=== PATIENT | male | born 1995 | race African-American/Black ===

== ENCOUNTER 2016-10-31 07:25 | Inpatient (IN) | payer BC, OTHER ==
[~2016-10-31] VITALS: Ht 177.8 cm; Wt 93.0 kg
[2016-10-31] MEDS ORDERED: MAGNESIUM HYDROXIDE 30 ML LIQUID UDC PO PRN (15:15)
[2016-10-31] MEDS ORDERED: BUPRENORPHINE HCL 2 MG TAB.SUBL SL PRN (15:15)
[2016-10-31] MEDS ORDERED: ONDANSETRON ODT 4 MG TAB.RAPDIS SL PRN (15:15)
[2016-10-31] MEDS ORDERED: IBUPROFEN 600 MG TABLET PO PRN (15:15)
[2016-10-31] MEDS ORDERED: diphenhydrAMINE 50 MG CAPSULE PO PRN (15:15)
[2016-10-31] MEDS ORDERED: LOPERAMIDE HCL 2 MG CAPSULE PO PRN ×2 (15:15)
[2016-10-31] MEDS ORDERED: MAG HYDROX/AL HYDROX/SIMETH 30 ML LIQUID UDC PO PRN (15:15)
[2016-10-31] MEDS ORDERED: MIRALAX 17 GM POWD.PACK PO PRN (15:15)
[2016-10-31] MEDS ORDERED: ACETAMINOPHEN 325 MG TABLET PO PRN (15:15)
[2016-10-31] MEDS ORDERED: CLONIDINE HCL 0.1 MG TABLET PO PRN (15:15)
[2016-10-31] MEDS ORDERED: DICYCLOMINE HCL 20 MG TABLET PO PRN (15:15)
[2016-10-31] MEDS ORDERED: HYDROXYZINE PAMOATE 25 MG CAPSULE PO PRN (15:15)
[2016-10-31] MEDS ORDERED: ONDANSETRON 4 MG/2 ML VIAL IM PRN (15:15)
[2016-10-31 15:25] VITALS: BP 129/72
--- NOTE | 2016-10-31 15:25 | NUR ---
PRE-ASSESSMENT: Pre-Assessment done at intake office, client is A/O x4, he presents with flat affect, anxious mood. Goose bumps and dilated pupils noted. T 98, RR 18, BP 129/72, HR 74, spO2 @ 99% on RA, Pain generalized body aches 3/10. He is fully ambulatory. He denies any allergies; he denies any withdrawal-induced seizure. PMH: insomnia, peptic ulcer. Medications taken at home Seroquel 200mg HS PO Gabapentin 300mg BID PO. Substance history Heroin 1gm IV daily for the past 10 days, longest period of sobriety 4 months.
--- NOTE | 2016-10-31 15:30 | NUR ---
Admissions Note 20 year old male admitted to [facility] for withdrawal from heroin. Client reports PMH of Insomnia, Peptic Ulcer, Chronic tobacco use. Client is oriented to unit, educated about protocols and how to work TV and call light in his room. Weight: 205 pounds. Height: 5'10" COWS: 7 Client appears anxious, goose bumps and clammy skin, skin intact with well healed small track liriano on bilateral forearms. Bilateral lung clear on auscultation, abdomen soft, non-tender, no edema noted. Clients voice is soft, he avoids eye contact. Client has NKA. Regular diet ordered. Full code status ordered. Client denies any history of seizures. LBM was 10/31/16, small/brown/soft. Client denies a PCP. He refuses PNA vaccine at this time, stating he is afraid he might get sick because of it. He gives verbal consent for HIV. Client states that he lives with his parents. Client substance use is as follow, he first started using heroin at age 15, for the last 10 days he has been using 1gram via IV daily, last time used 10/30/16 @ 2300. He reports prior treatments here at [facility], last been Jun 2016 from 6th to the 9th. His longest period of sobriety is for the last four months he was at a treatment in [place] and after completing it, he was at a sober living. Dr Nicole is with client. Urine was collected upon admission. All safety measures instituted. Porter precaution. Call light within reach. Will continue to monitor.
[2016-10-31] MEDS ORDERED: GABA-534 PO (15:57)
[2016-10-31] MEDS ORDERED: QUET200T PO (15:57)
[2016-10-31 16:45] LABS: BASOPHILS % (AUTO) 0.7 % (0.0-2.0); EOSINOPHILS % (AUTO) 0.6 % (0.0-7.0); HEMATOCRIT 43.6 % (36.7-47.1); HEMOGLOBIN 15.7 g/dL (12.5-16.3); LYMPHOCYTES % (AUTO) 34.6 % (20.5-74.5); MEAN CORPUSCULAR HEMOGLOBIN 29.4 uug (23.8-33.4); MEAN CORPUSCULAR HGB CONC 36 g/dL (32.5-36.3); MEAN CORPUSCULAR VOLUME 81.4 fL (73.0-96.2); MONOCYTES # (AUTO) 0.6 K/uL (2.0-10.0); MONOCYTES % (AUTO) 9.8 % (0-11); NEUTROPHILS # (AUTO) 3.3 K/uL (1.8-8.9); NEUTROPHILS % (AUTO) 54.3 % (31.5-64.5); PLATELET COUNT (AUTO) 343 K/uL (152-348); RED BLOOD CELL COUNT(AUTO) 5.36 MIL/uL (4.06-5.63); RED CELL DISTRIBUTION WIDTH 12.6 % (12.1-16.2); WHITE BLOOD COUNT (AUTO) 5.9 K/uL (3.6-10.2)
[2016-10-31 16:51] LABS: *AMPHETAMINE, URINE NEGATIVE (NEGATIVE); *BARBITURATE, URINE NEGATIVE (NEGATIVE); *CANNABINOID, URINE NEGATIVE (NEGATIVE); *COCCAINE, URINE NEGATIVE (NEGATIVE); *OPIATE, URINE NEGATIVE (NEGATIVE); *PHENCYCLIDINE SCREEN,URINE NEGATIVE (NEGATIVE); ETHANOL < 3 MG/DL (0-0)
[2016-10-31 17:00] VITALS: BP 130/77
[2016-10-31 17:03] LABS: ALANINE AMINOTRANSFERASE 35 U/L (16-63); ALBUMIN 4.6 g/dL (3.4-5.0); ALKALINE PHOSPHATASE 107 U/L (50-136); ASPARTATE AMINOTRANSFERASE 25 U/L (15-37); BILIRUBIN,TOTAL 0.7 mg/dL (0.2-1.0); CALCIUM 9.4 mg/dL (8.5-10.1); CARBON DIOXIDE 30 mmol/L (21-32); CHLORIDE 100 mmol/L (98-107); CREATININE 1.1 mg/dL (0.6-1.3); GFR 103 mL/min (>60); GLUCOSE 103 mg/dL (74-106); MAGNESIUM 2.3 mg/dL (1.8-2.4); POTASSIUM 3.5 mmol/L (3.5-5.1); SODIUM SERUM 141 mmol/L (136-145); TOTAL PROTEIN, SERUM 8.8 g/dL (6.4-8.2); UREA NITROGEN, BLOOD 11 mg/dL (7-18)
[2016-10-31 17:04] LABS: THYROID STIMULATING HORMONE 1.632 mIU/mL (0.358-3.740)
[2016-10-31 17:20] LABS: HIV-1 p24 ANTIGEN NON REACTIVE (NONREACTIVE); HIV-1/2 ANTIBODY NON REACTIVE (NONREACTIVE)
[2016-10-31] MEDS: BUPRENORPHINE HCL 2 MG TAB.SUBL SL SCH ×2 (17:41→21:55)
--- NOTE | 2016-10-31 19:00 | NUR ---
END OF SHIFT: Client started modified 5 day Subutex taper, for management of his withdrawal symptoms. He is in room, A/O X4, reports anxiety, chills, and fatigue, he denies any N/V/D. Last COWS 11. Adequate intake 800mL void x 2. Client denies any seizure. He is on [place] precautions. Side rails X 2 up. call light within reach, bed locked in lowest positions. Endorsed to incoming nurse
--- NOTE | 2016-10-31 19:50 | NUR ---
START OF SHIFT Received report from day shift nurse. Pt is lying in bed watching TV. He is a 20 yo male admitted to [facility] on 10/31 for heroin withdrawal. He is A&O x4 and ambulatory. NKA, full code status, and on a regular diet. He has a PMH of peptic ulcer and insomnia. On admission he admitted to using heroin 1 gram per day for 10 days. He reports mild headache, leg aches, restless legs, stomach cramps, and nasal stuffiness. Tapers due tonight. Fall precautions in place. Bed is down with call light in reach.
[2016-10-31 20:00] VITALS: BP 125/73
[2016-10-31] MEDS: METHOCARBAMOL 750 MG TABLET PO PRN (21:55)
--- NOTE | 2016-10-31 21:56 | NUR ---
PRN Robaxin administration Pt c/o leg aches and restless legs. PRN Robaxin administered.
--- NOTE | 2016-10-31 22:56 | NUR ---
PRN Robaxin reassessment PRN Robaxin effective. Pt is lying in bed resting with eyes closed. Respirations even and unlabored. Bed is down with call light in reach.
[2016-11-01] VITALS: BP 109/69
[2016-11-01 04:00] VITALS: BP 109/64
[2016-11-01] MEDS: PANTOPRAZOLE SODIUM 40 MG TABLET.DR PO SCH (06:50)
--- NOTE | 2016-11-01 07:15 | NUR ---
START OF SHIFT Report provided to shift nurse. Pt is lying in bed resting. He is a 20 yo male admitted to [facility] on 10/31 for heroin withdrawal. He is A&O x4 and ambulatory. NKA, full code status, and on a regular diet. He has a PMH of peptic ulcer and insomnia. On admission he admitted to using heroin 1 gram per day for 10 days. He started modified Subutex taper on 10/31. PRN Robaxin administered. Last COWS was 3. He drank 2419mL and slept for 7 hours. Fall precautions in place. Bed is down with call light in reach. Addendum: 11/01/16 at 1934 by JENIFFER GUAN RN Correction: END OF SHIFT
--- NOTE | 2016-11-01 07:40 | NUR ---
START OF SHIFT Received report from assistant shift supervisor nurse. 20 year old male patient admitted on 10/31/16 for Heroin withdrawals. Pt has been placed on a modified Subutex taper and is tolerating well. Pt is A/O x4. V/S wnl, RR even and unlabored. Pt has hx of peptic ulcer and insomnia. Denies hx of seizures. Pt has been using for only 10 days. Most recent COWS is 3. PRN Robaxin was administered at night and effective. No acute s/s of discomfort noted at this time. Pt ambulates with steady gait. Remains compliant with therapeutic care plan. All needs met at this time. Safety precautions are in place, will continue to monitor.
[2016-11-01 08:11] VITALS: BP 126/64
[2016-11-01] MEDS: MULTIVITAMINS,THERAPEUTIC TABLET PO SCH (08:44)
[2016-11-01] MEDS: BUPRENORPHINE HCL 2 MG TAB.SUBL SL SCH ×3 (08:45→21:56)
--- NOTE | 2016-11-01 08:58 | NUR ---
PPD ADMINISTERED PPD test administered on LFA to be read on 11/03/16.
--- NOTE | 2016-11-01 08:59 | NUR ---
PT ROUNDING Pt c/o of 710 body aches and nausea, but refuses medication at this time. Nonpharmacological methods to decrease pain and nausea implemented. Will continue to monitor.
[2016-11-01] MEDS ORDERED: TUBERCULIN,PURIF.PROT.DERIV. 5 TU/0.1 ML TEST ID ONE (09:00)
--- NOTE | 2016-11-01 10:58 | NUR ---
PRN IMODIUM/BENTYL Pt c/o 12/11 stomach cramps and diarrhea episode. PRN Imodium administered as ordered for diarrhea and PRN Bentyl administered for cramps. Will continue to monitor.
--- NOTE | 2016-11-01 11:58 | NUR ---
REASSESSMENT Pt denies further episodes of diarrhea and denies cramps at this time. Medication was effective.
[2016-11-01 13:16] VITALS: BP 112/68
[2016-11-01] MEDS: GABAPENTIN 300 MG CAPSULE PO SCH ×2 (14:44→21:56)
[2016-11-01] MEDS: DICYCLOMINE HCL 20 MG TABLET PO SCH ×2 (14:44→21:56)
[2016-11-01 17:30] VITALS: BP 139/72
--- NOTE | 2016-11-01 18:49 | NUR ---
END OF SHIFT 20 year old male patient admitted on 10/31/16 for Heroin withdrawals. Pt has been placed on a modified Subutex taper and is tolerating well. Pt is A/O x4. V/S wnl, RR even and unlabored. Pt has hx of peptic ulcer and insomnia. Denies hx of seizures. Most recent COWS is 4 at 1700. PRN Imodium and Bentyl administered and effective. No acute s/s of discomfort noted at this time. Pt reports BM x1. Pt ambulates with steady gait. Remains compliant with therapeutic care plan and encouraged to attend groups. All needs met at this time. Safety precautions are in place, will continue to monitor.
[2016-11-01 20:00] VITALS: BP 129/65
--- NOTE | 2016-11-01 20:05 | NUR ---
START OF SHIFT Received report from day shift nurse. Pt is lying in bed watching TV. He is a 20 yo male admitted to [facility] on 10/31 for heroin withdrawal. He is A&O x4 and ambulatory. NKA, full code status, and on a regular diet. He has a PMH of peptic ulcer and insomnia. On admission he admitted to using heroin 1 gram per day for 10 days. Pt has a flat affect. He reports body aches, anxiety, and tearing eyes. Tapers due tonight. Fall precautions in place. Bed is down with call light in reach.
[2016-11-01] MEDS: QUETIAPINE FUMARATE 200 MG TABLET PO PRN (21:56)
--- NOTE | 2016-11-01 21:57 | NUR ---
PRN Seroquel administration Pt reports inability to sleep. PRN Seroquel administered.
--- NOTE | 2016-11-01 23:00 | NUR ---
PRN Seroquel reassessment PRN Seroquel effective. Pt is lying in bed resting with eyes closed. Respirations even and unlabored. Safety measures in place.
[2016-11-02] VITALS: BP 138/62
--- NOTE | 2016-11-02 04:00 | NUR ---
0400 Vital signs refused. COWS deferred. Pt refused to be woken for 0400 vitals. Respirations even and unlabored. COWS is ordered Q4H while awake.
[2016-11-02] MEDS: PANTOPRAZOLE SODIUM 40 MG TABLET.DR PO SCH (06:54)
--- NOTE | 2016-11-02 07:22 | NUR ---
END OF SHIFT Report provided to day shift nurse. Pt is lying in bed resting. He is a 20 yo male admitted to [facility] on 10/31 for heroin withdrawal. He is A&O x4 and ambulatory. NKA, full code status, and on a regular diet. He has a PMH of peptic ulcer and insomnia. On admission he admitted to using heroin 1 gram per day for 10 days. He is ordered a modified Subutex taper which started on 10/31. PRN Seroquel administered for sleep. Last COWS 5. He drank 5805mL and slept for 7 hours. Fall precautions in place. Bed is down with call light in reach.
--- NOTE | 2016-11-02 07:30 | NUR ---
Start of Shift Report from night nurse: pt is 20 y/o male here for Opiate dependence r/t Heroin 1g IV x 10 days; Modified 5 day Subutex taper ordered. PRN Seroquel given last night. Pt is a full code, regular diet, NKFA, NKDA, fall precautions ordered. HHx: Peptic ulcer, insomnia, smoker, relapse with sobriety for 4 months with tx't here. V/S stable. Skin is intact. No new orders or labs endorsed to me. Last COWS 5. Pt is in room asleep. Will cont. to monitor the pt.
[2016-11-02 08:00] VITALS: BP 129/79
[2016-11-02] MEDS ORDERED: BUPRENORPHINE HCL 2 MG TAB.SUBL SL SCH (09:00)
[2016-11-02] MEDS: DICYCLOMINE HCL 20 MG TABLET PO SCH ×3 (10:12→20:07)
[2016-11-02] MEDS: GABAPENTIN 300 MG CAPSULE PO SCH (10:13)
[2016-11-02] MEDS: MULTIVITAMINS,THERAPEUTIC TABLET PO SCH (10:13)
[2016-11-02 11:09] LABS: HCV AB <0.1 s/co ratio (0.0-0.9); HEPATITIS B CORE AB, IgM Negative (Negative); HEPATITIS B SURFACE AG Negative (Negative)
[2016-11-02 12:00] VITALS: BP 118/57
[2016-11-02] MEDS ORDERED: BISACODYL 5 MG TABLET.DR PO PRN (15:15)
[2016-11-02] MEDS: BUPRENORPHINE HCL 2 MG TAB.SUBL SL SCH ×2 (15:53→20:09)
[2016-11-02] MEDS: DOCUSATE SODIUM 250 MG CAPSULE PO SCH (15:53)
[2016-11-02 16:00] VITALS: BP 98/65
--- NOTE | 2016-11-02 19:32 | NUR ---
End of Shift Report to night nurse: pt is 20 y/o male here for Opiate dependence r/t Heroin 1g IV x 10 days; Modified 5 day Subutex taper ordered. PRN Seroquel given last night. Pt is a full code, regular diet, NKFA, NKDA, fall precautions ordered. HHx: Peptic ulcer, insomnia, smoker, relapse with sobriety for 4 months with tx't here. V/S stable. Skin is intact. New orders for modified gabapentin and for Colace since pt c/o no BM in more than 2 days. Pt denies chest pain and no SOB noted. No hallucinations, delusions or suicidal ideations noted. Pt did not attend group therapy during my shift. Last COWS 6.
--- NOTE | 2016-11-02 19:50 | NUR ---
START OF SHIFT Received report from day shift nurse. Pt is lying in bed watching TV. He is a 20 yo male admitted to [facility] on 10/31 for heroin withdrawal. He is A&O x4 and ambulatory. NKA, full code status, and on a regular diet. He has a PMH of peptic ulcer and insomnia. On admission he admitted to using heroin 1 gram per day for 10 days. He started a modified subutex taper on on 10/31. Pt has a flat affect. He reports body aches, chills, anxiety, and has moist skin. Taper due tonight. Fall precautions in place. Bed is down with call light in reach.
[2016-11-02 20:00] VITALS: BP 134/64
[2016-11-02] MEDS: CLONIDINE HCL 0.1 MG TABLET PO SCH (20:08)
[2016-11-02] MEDS: BACLOFEN 10 MG TABLET PO SCH (20:08)
[2016-11-02] MEDS: QUETIAPINE FUMARATE 200 MG TABLET PO PRN (20:09)
--- NOTE | 2016-11-02 20:10 | NUR ---
PRN Seroquel administration Pt c/o inability to sleep. PRN Seroquel administered.
[2016-11-02] MEDS ORDERED: GABAPENTIN 300 MG CAPSULE PO SCH (21:00)
--- NOTE | 2016-11-02 21:10 | NUR ---
PRN Seroquel reassessment PRN Seroquel effective. Pt. is lying comfortably in bed resting with eyes closed. Respirations even and unlabored. Bed is down with call light in reach.
--- NOTE | 2016-11-03 | NUR ---
0000 Vital signs refused. COWS deferred. Pt refused to be woken for 0000 vitals. Respirations even and unlabored. COWS is ordered Q4H while awake.
--- NOTE | 2016-11-03 04:00 | NUR ---
0400 Vital signs refused. COWS deferred. Pt refused to be woken for 0400 vitals. Respirations even and unlabored. COWS is ordered Q4H while awake.
--- NOTE | 2016-11-03 07:25 | NUR ---
END OF SHIFT Report provided to day shift nurse. Pt is lying in bed resting. He is a 20 yo male admitted to [facility] on 10/31 for heroin withdrawal. He is A&O x4 and ambulatory. NKA, full code status, and on a regular diet. He has a PMH of peptic ulcer and insomnia. On admission he admitted to using heroin 1 gram per day for 10 days. Pt had one BM before bed. Last COWS 6. No PRN medications administered. He drank 2000mL and slept for 7 hours. Fall precautions in place. Bed is down with call light in reach.
--- NOTE | 2016-11-03 07:30 | NUR ---
Start of Shift Report from night nurse: pt is 20 y/o male here for Opiate dependence r/t Heroin 1g IV x 10 days; Modified 5 day Subutex taper ordered. Pt is a full code, regular diet, NKFA, NKDA, fall precautions ordered. HHx: Peptic ulcer, insomnia, smoker, relapse with sobriety for 4 months with tx't here. V/S stable. Skin is intact. PRN Seroquel given for sleep last night. No new orders or labs endorsed to me. Last COWS 6. Pt is in room asleep. Will cont. to monitor the pt.
[2016-11-03] MEDS: PANTOPRAZOLE SODIUM 40 MG TABLET.DR PO SCH (07:55)
[2016-11-03 08:00] VITALS: BP 110/66
[2016-11-03] MEDS: GABAPENTIN 300 MG CAPSULE PO SCH ×2 (10:40→15:56)
[2016-11-03] MEDS: DOCUSATE SODIUM 250 MG CAPSULE PO SCH (10:40)
[2016-11-03] MEDS: BUPRENORPHINE HCL 2 MG TAB.SUBL SL SCH ×3 (10:40→21:57)
[2016-11-03] MEDS: BACLOFEN 10 MG TABLET PO SCH ×3 (10:40→21:56)
[2016-11-03] MEDS: MULTIVITAMINS,THERAPEUTIC TABLET PO SCH (10:41)
[2016-11-03] MEDS: DICYCLOMINE HCL 20 MG TABLET PO SCH ×3 (10:41→21:56)
[2016-11-03] MEDS: CLONIDINE HCL 0.1 MG TABLET PO SCH ×3 (10:41→21:56)
[2016-11-03 12:00] VITALS: BP 108/96
[2016-11-03 16:00] VITALS: BP 128/73
--- NOTE | 2016-11-03 19:46 | NUR ---
End of Shift Report to night nurse: pt is 20 y/o male here for Opiate dependence r/t Heroin 1g IV x 10 days; Modified 5 day Subutex taper ordered. PRN Seroquel given last night. Pt is a full code, regular diet, NKFA, NKDA, fall precautions ordered. HHx: Peptic ulcer, insomnia, smoker, relapse with sobriety for 4 months with tx't here. V/S stable. Skin is intact. Pt denies chest pain and no SOB noted. No hallucinations, delusions or suicidal ideations noted. No PRN Medications given during my shift. No new orders or labs ordered during my shift. Pt did not attend group therapy during my shift, Dr. Nicole is aware. Last COWS 7.
[2016-11-03 20:00] VITALS: BP 132/63
--- NOTE | 2016-11-03 20:00 | NUR ---
1999 Patient received awake, alert and returning to his room # [id number] from [email or web address] in recreation room. Gait is steady. Patient responds to nurse's greeting and introduction with, " You were my nurse last time I was here, which was over a year ago." Patient is oriented to person, place, day, date, time and his personal situation. Patient's color is tannish-pink and his skin is warm, dry and intact. Lung sounds are clear bilaterally and active bowel sounds are noted X 4 abdominal Quads, per auscultation. Patient states that he has been going to [facility] as consistently as possible and that he is also being compliant with his medication regimen as ordered. Patient states further that he has been eating his regular diet trays and taking fluids ad agustina with no real gastric issues. Vital signs are : 98.2-100-16 116/71, O2 Sat 97%, COWS 4. Patient is denying any pain or other discomforts at this time and he voices no requests for anything. Fall/Seizure precautions continue. Patient was admitted on 10/31/16 for: Heroin withdrawal and he is currently on a 5-Day modified Subutex medication taper, which he is apparently tolerating well so far. Patient is cooperative and verbally appropriate when interacting with nurse, though mood/affect is quiet and somewhat withdrawn. Bed is locked and in lowest position, bed rails are up X 2 and call light within patient's easy reach.
[2016-11-03] MEDS: METHOCARBAMOL 750 MG TABLET PO PRN (21:57)
[2016-11-03] MEDS: QUETIAPINE FUMARATE 200 MG TABLET PO PRN (21:57)
--- NOTE | 2016-11-03 21:57 | NUR ---
PRN MEDICATIONS: Prn Seroquel 200 mg p.o. given per request for sleep medication. Patient states, " I take seroquel every night", and Prn Robaxin 750 mg p.o. given per c/o lower body muscle aches, 6/10 pain scale.
--- NOTE | 2016-11-03 22:57 | NUR ---
REASSESSMENT PRN MEDICATIONS: Patient is sleeping soundly with eyes closed and deep, even and unlabored at 12.
[2016-11-04] VITALS: BP 127/65
--- NOTE | 2016-11-04 04:00 | NUR ---
Patient refuses to be awakened for V/S to be done at this time.
--- NOTE | 2016-11-04 06:30 | NUR ---
0630 Patient slept a total of 5 hours and he had 2,260 ml p.o. intake and 4 voids and 1 stools at bathroom. Prn medications given noted separately per floor protocol. V/SS afebrile, COWS 2. Patient is presently sleeping comfortably in stable condition. Eyes closed and respirations quiet, even, unlabored at 12.
[2016-11-04] MEDS: PANTOPRAZOLE SODIUM 40 MG TABLET.DR PO SCH (06:39)
--- NOTE | 2016-11-04 07:25 | NUR ---
Start of shift note Pt was admitted for opiate dependence. Pt is on the last day of his subutex taper. Pt has a PMHx of peptic ulcer and insomnia. Pt is a full code, on a regular diet and has NKA. Pt has no complaints at this time, but pt states " I am tired and I really just want to sleep". Will continue to monitor pt. Bed is locked in a low position, call light within reach, side rails up x2.
[2016-11-04 08:00] VITALS: BP 104/55
--- NOTE | 2016-11-04 08:00 | NUR ---
VS assessment Pt reported pain 8/10 to GAS WELDER during VS, however at this time, pt is sleeping soundly. Will continue to monitor pt. Bed is locked in a low position, call light within reach. Addendum: 11/04/16 at 0841 by PARUL KING RN Amended: Links added.
[2016-11-04] MEDS ORDERED: BUPRENORPHINE HCL 2 MG TAB.SUBL SL SCH (09:00)
[2016-11-04] MEDS: MULTIVITAMINS,THERAPEUTIC TABLET PO SCH (09:57)
[2016-11-04] MEDS: DICYCLOMINE HCL 20 MG TABLET PO SCH ×3 (09:57→22:08)
[2016-11-04] MEDS: GABAPENTIN 300 MG CAPSULE PO SCH ×3 (09:57→22:08)
[2016-11-04] MEDS: DOCUSATE SODIUM 250 MG CAPSULE PO SCH (09:57)
[2016-11-04] MEDS: BACLOFEN 10 MG TABLET PO SCH ×3 (09:58→22:08)
[2016-11-04] MEDS: CLONIDINE HCL 0.1 MG TABLET PO SCH ×3 (09:58→22:08)
[2016-11-04 12:00] VITALS: BP 106/55
--- NOTE | 2016-11-04 12:00 | NUR ---
VS assessment Pt reported to [facility] that he has pain 01/10. Asked pt if he would like anything for his pain, pt refused states he just wants to sleep. Will continue to monitor pt Addendum: 11/04/16 at 1301 by PARUL KING RN Amended: Links added.
--- NOTE | 2016-11-04 14:15 | NUR ---
Medication held Pt c/o sedation and states he doesn't want to take the clonidine, clonidine held. Will continue to monitor the pt.
[2016-11-04] MEDS ORDERED: PANT40TA2 PO (15:52)
[2016-11-04] MEDS ORDERED: Docusate Sodium PO (15:52)
[2016-11-04] MEDS ORDERED: HYDR-3895 PO (15:52)
[2016-11-04] MEDS ORDERED: Gabapentin PO (15:52)
[2016-11-04] MEDS ORDERED: DICY20TA28 PO (15:52)
[2016-11-04] MEDS ORDERED: Baclofen PO (15:52)
[2016-11-04] MEDS ORDERED: CLON0.1T14 PO (15:52)
[2016-11-04] MEDS ORDERED: Ibuprofen PO (15:52)
[2016-11-04 16:00] VITALS: BP 152/88
[2016-11-04 16:12] LABS: *AMPHETAMINE, URINE NEGATIVE (NEGATIVE); *BARBITURATE, URINE NEGATIVE (NEGATIVE); *CANNABINOID, URINE NEGATIVE (NEGATIVE); *COCCAINE, URINE NEGATIVE (NEGATIVE); *OPIATE, URINE NEGATIVE (NEGATIVE); *PHENCYCLIDINE SCREEN,URINE NEGATIVE (NEGATIVE)
--- NOTE | 2016-11-04 19:24 | NUR ---
End of shift note Pt was admitted for opiate dependence. Pt has successfully completed his subutex taper without any ASE. Pt has a PMHx of peptic ulcer and insomnia. Pt is a full code, on a regular diet and has NKA. Pt is scheduled to discharge tomorrow 11/05/16. Pt states that he feels ready for discharge. Pt did not require any PRN medications during the shift. All needs addressed at this time. SBAR report endorsed to oncoming shift.
--- NOTE | 2016-11-04 19:30 | NUR ---
Start of Shift Note: Patient is a 20 y/o male admitted on 10/31/16 for Opiate dependence. Patient reported using Heroin IV 1 gram daily for 10 days. patient with past medical history of Peptic Ulcer & Insomnia. Patient is on a regular diet with no known food and drug allergies. Full Code status. No seizure history noted. Patient complated his 5-day Subutex taper and he is scheduled to be discharge tomorrow. Urine drug screen collected and resulted. Last COWS is 2. No PRN medications given during day shift. Patient is alert & oriented x4. No shortness of breath noted. Respiration even & unlabored. Abdomen soft & non-distended. Bowel sounds active in all four quadrants. Nausea noted with no episode of vomiting. Patient complains of 7/10 body aches, sweating, chills, stuffy nose, & anxiety. No bilateral hand tremors noted. Patient denies hallucinations. Safety precautions are in place. Bed locked in lowest position. Both side rails up. Call light within pt's reach. Will continue to monitor patient.
[2016-11-04 20:00] VITALS: BP 132/81
--- NOTE | 2016-11-04 22:08 | NUR ---
PRN Zofran Patient complains of nausea. No episode of vomiting noted. PRN Zofran 4mg SL administered as ordered. Will reassess in 1 hour. Will continue to monitor patient.
--- NOTE | 2016-11-04 23:08 | NUR ---
PRN Reassessment Patient verbalized improved nausea. Patient stable with no s/s of distress. Safety precautions are in place. Will continue to monitor patient.
[2016-11-05] VITALS: BP 118/72
[2016-11-05] MEDS: PANTOPRAZOLE SODIUM 40 MG TABLET.DR PO SCH (06:21)
--- NOTE | 2016-11-05 07:25 | NUR ---
Start of shift note Pt was admitted for opiate dependence. Pt has a PMHx of peptic ulcer and insomnia. Pt is scheduled to discharge today. Pt states that he feels ready for discharge. Pt has no complaints at this time. Pt has completed a subutex taper without any ASE. All needs addressed at this time. Will continue to monitor pt.
--- NOTE | 2016-11-05 07:40 | NUR ---
End of Shift Note: Patient is a 20 y/o male admitted on 10/31/16 for Opiate dependence. Patient reported using Heroin IV 1 gram daily for 10 days. patient with past medical history of Peptic Ulcer & Insomnia. Patient is on a regular diet with no known food and drug allergies. Full Code status. No seizure history noted. Patient complated his 5-day Subutex taper and he is scheduled to be discharge today. Urine drug screen collected and resulted. Last COWS is 5. Pt was given PRN Zofran for nausea and were effective. Patient remained stable and vitals remains WNL. Pt slept for a total of 7 hours. Consumed 1350ml of fluids. Voided 3x with no bowel movement. All needs attended & met. Safety precautions are in place. Will endorse to day shift nurse.
[2016-11-05 08:00] VITALS: BP 103/67
[2016-11-05 08:21] VITALS: BP 103/67
[2016-11-05] MEDS: DICYCLOMINE HCL 20 MG TABLET PO SCH (08:21)
[2016-11-05] MEDS: MULTIVITAMINS,THERAPEUTIC TABLET PO SCH (08:21)
[2016-11-05] MEDS: DOCUSATE SODIUM 250 MG CAPSULE PO SCH (08:21)
[2016-11-05] MEDS: CLONIDINE HCL 0.1 MG TABLET PO SCH (08:21)
[2016-11-05] MEDS: GABAPENTIN 300 MG CAPSULE PO SCH (08:21)
[2016-11-05] MEDS: BACLOFEN 10 MG TABLET PO SCH (08:21)
--- NOTE | 2016-11-05 09:48 | NUR ---
Discharge note Pt was admitted for opiate dependence. Pt has a recent COWS of 3. Pt VS are WNL. Pt LBM was 11/03/16. Pt denies any SI/HI. Pt verbalized his understanding of the discharge instructions. Pt has no complaints at this time. Pt discharge instructions, prescriptions, medications and all belongings returned to pt. All needs addressed at this time. Pt ID band removed, pt ambulated off of unit, pt left facility via [facility] for [facility].
== END 2016-11-05 09:48 | disposition other institution (70) | DRG 895 ==
LOC: SRC 14:41
PROVIDERS: ADMIT Internal Medicine; ATTEND Internal Medicine
PROC: HZ2ZZZZ Detoxification Services for Substance Abuse Treatment (ICD-10-PCS; principal; 2016-10-31)
PROC: HZ51ZZZ Individual Psychotherapy for Substance Abuse Treatment, Behavioral (ICD-10-PCS; 2016-11-02)
DX: F11.23 Opioid dependence with withdrawal (principal); G47.00 Insomnia, unspecified; F17.210 Nicotine dependence, cigarettes, uncomplicated; K27.7 Chronic peptic ulcer, site unspecified, without hemorrhage or perforation; K59.03 Drug induced constipation
CPT/HCPCS: 36415; 80307; 83735; 84443; 85025; 86580; 86592; 86705; 86803; 87340; 87806; A4663; G6040-TC; Q0162; Q0163

== ENCOUNTER 2017-02-05 09:36 | Inpatient (IN) | payer BC, OTHER ==
[~2017-02-05] VITALS: Ht 177.8 cm; Wt 93.0 kg
[~2017-02-05 09:36] MED LIST: Baclofen PO; CLON0.1T14 PO; DICY20TA28 PO; Docusate Sodium PO; Gabapentin PO; HYDR-3895 PO; Ibuprofen PO; PANT40TA2 PO; QUET200T PO
[2017-02-05] MEDS ORDERED: ONDANSETRON ODT 4 MG TAB.RAPDIS SL PRN (13:15)
[2017-02-05] MEDS ORDERED: METHOCARBAMOL 750 MG TABLET PO PRN (13:15)
[2017-02-05] MEDS ORDERED: DICYCLOMINE HCL 20 MG TABLET PO PRN (13:15)
[2017-02-05] MEDS ORDERED: BUPRENORPHINE HCL 2 MG TAB.SUBL SL PRN (13:15)
[2017-02-05] MEDS ORDERED: MIRALAX 17 GM POWD.PACK PO PRN (13:15)
[2017-02-05] MEDS ORDERED: ACETAMINOPHEN 325 MG TABLET PO PRN (13:15)
[2017-02-05] MEDS ORDERED: diphenhydrAMINE 50 MG CAPSULE PO PRN (13:15)
[2017-02-05] MEDS ORDERED: LOPERAMIDE HCL 2 MG CAPSULE PO PRN ×2 (13:15)
[2017-02-05] MEDS ORDERED: HYDROXYZINE PAMOATE 25 MG CAPSULE PO PRN (13:15)
[2017-02-05] MEDS ORDERED: CLONIDINE HCL 0.1 MG TABLET PO PRN (13:15)
[2017-02-05] MEDS ORDERED: ONDANSETRON 4 MG/2 ML VIAL IM PRN (13:15)
[2017-02-05] MEDS ORDERED: MAG HYDROX/AL HYDROX/SIMETH 30 ML LIQUID UDC PO PRN (13:15)
[2017-02-05 13:47] LABS: BASOPHILS # (AUTO) 0.3 K/uL (0.0-8.0); BASOPHILS % (AUTO) 2.3 % (0.0-2.0); EOSINOPHILS % (AUTO) 0.1 % (0.0-7.0); HEMATOCRIT 48.3 % (40-50); LYMPHOCYTES # (AUTO) 1.8 K/UL (0.8-4.8); LYMPHOCYTES % (AUTO) 15.2 % (20.5-51.5); MEAN CORPUSCULAR HEMOGLOBIN 28.1 UUG (27.0-31.0); MEAN CORPUSCULAR HGB CONC 33 g/dL (32.0-37.0); MEAN CORPUSCULAR VOLUME 84.9 FL (82.0-92.0); MONOCYTES # (AUTO) 1.4 K/UL (0.1-1.30); MONOCYTES % (AUTO) 12.1 % (0.0-11.0); NEUTROPHILS # (AUTO) 8.2 K/UL (1.8-8.9); NEUTROPHILS % (AUTO) 70.3 % (38.5-71.5); PLATELET COUNT (AUTO) 414 K/UL (150-450); RED BLOOD CELL COUNT(AUTO) 5.69 MIL/UL (4.7-6.1); WHITE BLOOD COUNT (AUTO) 11.7 K/UL (4.0-11.2)
[2017-02-05 13:59] LABS: ETHANOL < 3 MG/DL (0-0)
--- NOTE | 2017-02-05 14:00 | NUR ---
PRE-ASSESSMENT: Pre-Assessment done at intake office, client is A/O x4, he presents with anxious mood, flat affect, mild intoxicated, fidgety and emotional, he was crying stating, "I don't know why I keep getting everyone down." Client noted scratching his upper arms and legs, rashes non raised, round and red noted scattered at torso area and bilateral arms. track liriano on bilateral AC. Client is ambulatory with steady gait. Client is cooperative and answers questions appropriately. T 98, RR 18, BP 154/108, HR 121, spO2 @ 99% on RA, Pain 0/10. He denies any allergies; he denies any withdrawal-induced seizure. Vital signs, urine drug screen and blood drawn protocol discuss, client verbalized understanding and agreement. PMH: insomnia, peptic ulcer, HTN Medications taken at home Zolof daily can not remember dose or last time he took it. Elavil 50mg HS Vistaril 50mg HS Propranolol 40mg HS Clonidine 0.1mg HS He stated, "I have not been taking my medications for a while." Substance history Heroin 1gm IV daily for 10 days , longest period of sobriety of 3 years after he turned 18 years old. He reports drinking wine unknown amount x 5 days, last use 02/04/17 around 11 p.m.
[2017-02-05 14:02] LABS: ALANINE AMINOTRANSFERASE 35 U/L (16-63); ALKALINE PHOSPHATASE 116 U/L (50-136); ASPARTATE AMINOTRANSFERASE 31 U/L (15-37); BILIRUBIN,TOTAL 0.6 mg/dL (0.2-1.0); CARBON DIOXIDE 27 mmol/L (21-32); CHLORIDE 103 mmol/L (98-107); CREATININE 1.2 mg/dL (0.6-1.3); GLUCOSE 115 mg/dL (74-106); MAGNESIUM 2.4 mg/dL (1.8-2.4); POTASSIUM 4.9 mmol/L (3.5-5.1); TOTAL PROTEIN, SERUM 9.2 g/dL (6.4-8.2); UREA NITROGEN, BLOOD 11 mg/dL (7-18)
[2017-02-05] MEDS ORDERED: LORAZEPAM 1 MG TABLET PO PRN ×2 (14:15)
[2017-02-05] MEDS ORDERED: PROP40TA7 PO (14:15)
[2017-02-05] MEDS ORDERED: LORAZEPAM 2 MG/1 ML VIAL IM PRN (14:15)
[2017-02-05] MEDS ORDERED: SERT50TA PO (14:15)
[2017-02-05] MEDS ORDERED: AMIT50TA17 GT (14:15)
[2017-02-05] MEDS ORDERED: PERMETHRIN 5% CREAM 60 GM TUBE TP ONE (14:30)
[2017-02-05] MEDS ORDERED: NICOTINE 14 MG/24HR PATCH TD PRN (14:30)
[2017-02-05] MEDS ORDERED: NICOTINE POLACRILEX 4 MG GUM-PK OF TEN BC PRN (14:30)
[2017-02-05 14:40] VITALS: BP 154/108
--- NOTE | 2017-02-05 14:40 | NUR ---
ADMISSION Client is a 21 yo male [facility] medically supervised withdrawal from heroin. Skin check performed by the nurse, scattered rash noted at torso BUE. He was oriented to the unit and shown to his room. Pt is A&O x4 and ambulatory with a steady gait. He appears mildly intoxicated but is cooperative and answers all questions appropriately. Pt reports NKA, full code status, regular diet. Client is 5'10" and weighs 205 lb. Lung sounds clear, PERRLA, brisk capillary refill, bowel sounds present, skin is warm, dry, and intact. He has track liriano on bilateral antecubitals. He last had a small BM this morning. Treatment History: [facility] x 5 times, last being October 31-Nov 05 2016 Client smokes 1 pack of cigarettes per day. Prior to relapsing 10 days ago, client had 94 days of sobriety. His longest period of sobriety was 3 years after he turned 18 y/o. He decided to come to treatment today because "I don't know why I keep getting everyone down." Prior to admission he was living at a motel by himself. He stated, "My parents will help me if I ask, but I just want to do it on my own." Client does not have a primary care physician. COWS 4. Client denies any hx of withdrawal-induced seizure. Admission orders received. Client is on contact isolation pending infectious disease consultation evaluation of rashes along torso. Client unable to provide urine for drug screen. Client educated regarding use of the call light and all questions answered. [place] precautions in place. Bed is down with call light in reach.
[2017-02-05] MEDS ORDERED: LORAZEPAM 1 MG TABLET PO ONE (15:00)
--- NOTE | 2017-02-05 15:00 | NUR ---
Client has not been able to provide urine for drug screen test, Dr. Nicole approved to give Ativan 2mg for anxiety and irritability to client. To. made aware.
[2017-02-05] MEDS ORDERED: CYAN10006 IM (15:55)
[2017-02-05] MEDS ORDERED: QUETIAPINE FUMARATE 25 MG TABLET PO PRN (16:15)
[2017-02-05] MEDS ORDERED: QUETIAPINE FUMARATE 100 MG TABLET PO PRN (16:15)
[2017-02-05 16:55] VITALS: BP 132/98
--- NOTE | 2017-02-05 17:38 | NUR ---
PRN Bentyl 20mg, Catapres 0.1mg, Vistaril 25mg Client reports abdominal cramps, chills, cold, irritability and anxiety above medications given PO respectively. call light within reach. Will continue to monitor.
--- NOTE | 2017-02-05 18:38 | NUR ---
Reassessment PRN Bentyl 20mg, Catapres 0.1mg, Vistaril 25mg Client reports relief from abdominal cramps, chills, and cold. He appears less irritable and anxious, he is able to watch a TV show. Call light within reach. Will continue to monitor.
--- NOTE | 2017-02-05 19:56 | NUR ---
END OF SHIFT Client is a 21 yo male admitted withdrawal from heroin. Client is in room, a/o x 4, he continues to present with depressed mood, flat affect, last COWS 4/ CIWA 4. PRN Bentyl 20mg, Catapres 0.1mg, Vistaril 25mg for abdominal cramps, chills, cold, irritability and anxiety, noted effective. Client is on strict contact isolation, per infection control MD Patient either has scabies or multiple bed bug bites from being homeless and recently living in a motel. Lesions are more likely scabies. Client was started on Elimite this afternoon. doctor will consider a scraping for scabies. Client has not been able to provide urine for drug screen test. Adequate PO intake 1000mL. Safety measures in place, call light within reach, side rails up x2/padded, bed locked and in low position. Endorsed to incoming nurse. especially if he does not respond. above medications given PO respectively. call light within reach. Will continue to monitor.
[2017-02-05 20:00] VITALS: BP 137/79
--- NOTE | 2017-02-05 20:00 | NUR ---
START OF SHIFT Pt is a 21 yo male admitted for Opiate/ETOH dependency,A/O X 4,mood is sad and depressed, last COWS 4/ CIWA 4.PMH of insomnia and peptic ulcer; no history of seizures noted.NKA,full code,regular diet.Pt received sitting in bed in his room Pt is on strict contact isolation for scabies. Pt was treated with Elimite this afternoon,to be showered at 0500. Client has not been able to provide urine for drug screen test. PO fluids encouraged as tolerated. All safety measures in place, call light within reach, side rails up x2/padded, bed locked and in low position.Will continue to monitor.
--- NOTE | 2017-02-06 | NUR ---
PT REFUSED TO TO HAVE B/P AND TEMP CHECKED. Addendum: 02/06/17 at 0218 by HENRI WASHINGTON RN Amended: Links added.
[2017-02-06 04:00] VITALS: BP 114/93
--- NOTE | 2017-02-06 07:26 | NUR ---
Start of Shift Notes: Received patient in his room. Alert and verbally responsive. Oriented x 4. Able to make his needs known. Respirations even and unlabored. No SOB noted. Skin warm and dry to touch. Abdomen soft and non-distended with (+) BS in all 4 quadrants. No complains of N/V/D or constipation noted. No complains of abdominal cramps noted at this time. Bladder non-distended. No complains of dysuria noted. Voids independently. Ambulatory ad agustina with steady gait.. Patient is a 21 year old male admitted for ETOH and opiate dependence who was placed on PRNs at this time. has past medical hx of peptic ulcer dusiease, and insomnia. NKA. FULL CODE. Regular diet. On fall and seizure precautions. Placed on contact isolation due to scabies. Elimite treatment was given last night then patient showere this AM. Still requires urine for UDS. Placed on room restriction per unit policy. On fall and seizure precautions. Last COWS / 1. Educated patient on the current plan of care for the day and his medication regimen. Encouraged oral fluid intake and encouraged group participation to learn new skills to prevent relapse. All needs met and attended. Will continue to monitor closely.
--- NOTE | 2017-02-06 07:31 | NUR ---
END OF SHIFT Pt is a 21 yo male admitted for Opiate/ETOH dependency,A/O X 4,mood is sad and depressed, last COWS 1/ CIWA 1.PMH of insomnia and peptic ulcer; no history of seizures noted.NKA,full code,regular diet. Pt is on strict contact isolation for scabies until seen by Dr Nicole. Pt was treated with Elimite and took a shower at 0515. Pt has not been able to provide urine for drug screen test. He has voided x 2,but forgot to call for specimen cup.No PRN meds given last night; Pt slept 5 HRS,fluid intake was 1888 mls,voided x 2. PO fluids encouraged as tolerated. All safety measures in place, call light within reach, side rails up x2/padded, bed locked and in low position,will continue monitoring.
[2017-02-06 08:00] VITALS: BP 113/61
--- NOTE | 2017-02-06 08:06 | NUR ---
UDS: Patient was able to provide urine specimen for UDS. Taken off RR at this time.
--- NOTE | 2017-02-06 08:30 | NUR ---
UDS result: Patient's UDS result returned which shows "positive" for opiates. Per MD, continue with current Subutex taper.
[2017-02-06 08:36] LABS: *AMPHETAMINE, URINE NEGATIVE (NEGATIVE); *BARBITURATE, URINE NEGATIVE (NEGATIVE); *CANNABINOID, URINE NEGATIVE (NEGATIVE); *COCCAINE, URINE NEGATIVE (NEGATIVE); *OPIATE, URINE POSITIVE (NEGATIVE); *PHENCYCLIDINE SCREEN,URINE NEGATIVE (NEGATIVE)
[2017-02-06] MEDS: FOLIC ACID 1 MG TABLET PO SCH (08:57)
[2017-02-06] MEDS: BUPRENORPHINE HCL 2 MG TAB.SUBL SL SCH ×3 (08:57→21:30)
[2017-02-06] MEDS: THIAMINE HCL 100 MG TABLET PO SCH (08:57)
[2017-02-06] MEDS ORDERED: TUBERCULIN,PURIF.PROT.DERIV. 5 TU/0.1 ML TEST ID ONE (09:00)
[2017-02-06 12:00] VITALS: BP 134/81
[2017-02-06 12:10] LABS: HEPATITIS B SURFACE AG Negative (Negative)
--- NOTE | 2017-02-06 12:37 | NUR ---
Psych MD Visit: Seen and examined by Dr. Gambino with NNO at this time.
[2017-02-06 16:00] VITALS: BP 106/55
--- NOTE | 2017-02-06 19:07 | NUR ---
End of Shift Notes: Patient initiated his 4-day Subutex taper as ordered. No adverse reactions noted. Patient is tolerating taper well. VS monitored closely q 4 hours. No significant abnormalities noted. Patient withdrawal symptoms were closely monitored. Patients initial COWS 12/CIWA 4, patient presented with anxiety, muscle aches, agitation, chills and hot flashes and restless legs. Last COWS 5/CIWA 3, Per patient, Subutex has been helping him with his withdrawal symptoms. Patient was unable to participate In group and therapy sessions due to his withdrawal symptoms. Continues to be on contact isolation for scabies. Treatment has been completed. Educated patient on universal and contact isolation precautions. Patient is compliant. Compliant with care and treatment. Requires encouragement to participate in group and activities. All needs met and attended. Will continue to monitor closely.
--- NOTE | 2017-02-06 19:30 | NUR ---
START OF SHIFT Pt is a 21 yo male admitted for Opiate/ETOH dependency,A/O X 4,mood is sad and depressed, last COWS 5/ CIWA 3.PMH of insomnia and peptic ulcer; no history of seizures noted.NKA,full code,regular diet.Pt received sitting in bed in his room Pt is on strict contact isolation for scabies;treatment with Elimite completed.Pt educated on contact isolation precautions and is compliant. Pt is on 4 day Subutex taper,tolerating well. PO fluids encouraged as tolerated. All safety measures in place, call light within reach, side rails up x2/padded, bed locked and in low position.Will continue to monitor.
[2017-02-06 20:00] VITALS: BP 141/82
[2017-02-06] MEDS: QUETIAPINE FUMARATE 100 MG TABLET PO PRN (21:30)
[2017-02-06] MEDS: IBUPROFEN 600 MG TABLET PO PRN (21:31)
--- NOTE | 2017-02-06 21:33 | NUR ---
PRN MEDS PRN MOTRIN GIVEN ORDERED FOR HEAD AND BODY ACHE,6/10 AND SEROQUEL GIVEN ORDERED FOR INSOMNIA,PER PT REQUEST.WILL MONITOR FOR EFFECTIVENESS.
--- NOTE | 2017-02-06 22:35 | NUR ---
PRN F/U PT VERBALIZES A DECREASE IN PAIN LEVEL 3/10,LYING IN BED,SAID HE IS FEELING SLEEPY.
[2017-02-07] VITALS (7 sets, daily range): BP systolic 106–136; BP diastolic 46–68
--- NOTE | 2017-02-07 06:50 | NUR ---
END OF SHIFT Pt is a 21 yo male admitted for Opiate/ETOH dependency,A/O X 4,mood is sad and depressed, last COWS 3/ CIWA 3.PMH of insomnia and peptic ulcer; no history of seizures noted.NKA,full code,regular diet.Pt received sitting in bed in his room Pt is on strict contact isolation for scabies until cleared by infection control/MD;treatment with Elimite completed.Pt educated on contact isolation precautions and is compliant. Pt is on 4 day Subutex taper,tolerating well. PO fluids encouraged as tolerated. PRN Motrin and Seroquel given and were effective.Pt slept 6 hrs,fluid intake was 1210 mls,voided x 2.All safety measures in place, call light within reach, side rails up x2/padded, bed locked and in low position.Will continue to monitor.
--- NOTE | 2017-02-07 07:09 | NUR ---
Start of Shift Endorsement received from nightshift nurse. Pt is a 21 y/o male admitted for Heroin dependence. Pt has been placed on a 4 day Subutex taper. Pt is tolerating the taper well AEB COWS 3 at midnight. Pt received PRN Motrin and Seroquel. Pt reports sleeping 6 hours. Pt is on contact isolation at this time. VS WNL. Full code. PT is alert and oriented x4. Pt is in STABLE condition at this time. Remains compliant with medication and diet regimen. All needs have been met, All safety measures in place per hospital policy. Bed in lowest position, side rails up x2, call-light within reach. Will continue to monitor
[2017-02-07] MEDS ORDERED: BUPRENORPHINE HCL 2 MG TAB.SUBL SL SCH (09:00)
[2017-02-07] MEDS: FOLIC ACID 1 MG TABLET PO SCH (09:40)
[2017-02-07] MEDS: THIAMINE HCL 100 MG TABLET PO SCH (09:40)
[2017-02-07] MEDS: BUPRENORPHINE HCL 2 MG TAB.SUBL SL SCH ×2 (15:25→21:12)
--- NOTE | 2017-02-07 18:54 | NUR ---
START OF SHIFT NOTE: Patient endorsed by day shift nurse in stable condition. Report received. Patient is a 21 year old male admitted to [facility] on 02/05/2017 for medically supervised withdrawal from ETOH (Wine) and Opioid (Heroin via IV), continue 5 Day Subutex Taper since 02/07/2017 with tolerated well without ASE. Patient remained compliant with treatment, medications and diet regime. Patient reports NKA. Patient is on Full Code, Regular Diet, Fall and Seizures Precautions. PMH: Anxiety, Depression, Peptic Ulcer, Substance abuse, Tobacco dependence. Upon endorsement, patient is in the room. Patient is on contact isolation at this time r/t scabies. Treatment done on 02/05/17. Patient did not participate in groups or activities. Assessment done. Patient is alert and oriented x4. Speech is clear and soft. COWS 7, CIWA 5. Patient presented with mild anxiety, agitation, nervousness, mild nausea, diaphoresis, tremors that can be felt, restlessness, body aches, insomnia and fatigue. Patient denies SI/HI. VSWNL. Respirations unlabored and even. Patient denies SOB and chest pain. Lungs Sounds are clear bilaterally. Bowel Sounds active in all x4 quadrants. PERRLA, brisk capillary refill, road machine runner equal and strong. Encourage fluids as tolerated. All needs met. Safety measures on place. Call light within reach, bed in lowest position and locked, padded rails up bilaterally rails up bilaterally. Will continue to monitor closely.
--- NOTE | 2017-02-07 18:54 | NUR ---
End of Shift Endorsement given to nightshift nurse. Pt is a 21 y/o male admitted for Heroin dependence. Pt has been placed on a 4 day Subutex taper. Pt is tolerating the taper well AEB COWS 4 at 1600. Pt did receive any PRN medications. Pt did not participate in groups or activities. Pt is on contact isolation at this time. Intake: 1580ml, Void x5, BM x0. Educated pt on s/e of medications and diet regimen. VS WNL. Full code. PT is alert and oriented x4. Pt is in STABLE condition at this time. Remains compliant with medication and diet regimen. All needs have been met, All safety measures in place per hospital policy. Bed in lowest position, side rails up x2, call-light within reach. Will continue to monitor
--- NOTE | 2017-02-07 23:17 | NUR ---
PRN SEROQUEL 25 MG 1 TAB PO ADMINISTRATION Patient c/o depression and agitation and asked ordered PRN Seroquel PO. Patient's assessed. VS WNL. PRN Seroquel 25 mg 1 tab PO administrated with full glass of water as ordered. Patient tolerated well. All needs met. Safety measures on place. Call light within reach, bed in lowest position and locked, padded rails up bilaterally rails up bilaterally. Will continue to monitor closely.
[2017-02-08] MEDS: QUETIAPINE FUMARATE 100 MG TABLET PO PRN ×2 (00:17→21:23)
--- NOTE | 2017-02-08 00:17 | NUR ---
RE-ASSESSMENT Due to re-assessment, patient reported that feeling less agitated and anxious. Medication was effective. All needs met. Safety measures on place. Call light within reach, bed in lowest position and locked, padded rails up bilaterally rails up bilaterally. Will continue to monitor closely.
--- NOTE | 2017-02-08 00:17 | NUR ---
PRN SEROQUEL 200 MG 2 TAB PO ADMINISTRATION Patient c/o insomnia and asked ordered PRN Seroquel PO for insomnia. Patient's assessed. VS WNL. PRN Seroquel 200mg 2 tab PO administrated with full glass of water as ordered. Patient tolerated well. All needs met. Safety measures on place. Call light within reach, bed in lowest position and locked, padded rails up bilaterally rails up bilaterally. Will continue to monitor closely.
[2017-02-08] MEDS: IBUPROFEN 600 MG TABLET PO PRN ×2 (00:21→21:22)
--- NOTE | 2017-02-08 00:21 | NUR ---
PRN MOTRIN 600 MG 1 TAB ADMINISTRATION Patient c/o Left shoulder and left leg pain level "8/10" and asked aid. PRN Motrin 600 mg 1 tab PO administrated as ordered. All needs met. Safety measures on place. Call light within reach, bed in lowest position and locked, padded rails up bilaterally rails up bilaterally. Will continue to monitor closely.
--- NOTE | 2017-02-08 01:17 | NUR ---
RE-ASSESSMENT Patient is sleeping. Respirations are unlabored and even. RR 14. Medication was effective. All needs met. Safety measures on place. Call light within reach, bed in lowest position and locked, padded rails up bilaterally rails up bilaterally. Will continue to monitor closely.
--- NOTE | 2017-02-08 01:21 | NUR ---
RE-ASSESSMENT Patient is sleeping. Respirations are unlabored and even. RR 15. Medication was effective. All needs met. Safety measures on place. Call light within reach, bed in lowest position and locked, padded rails up bilaterally rails up bilaterally. Will continue to monitor closely.
[2017-02-08 02:00] VITALS: BP 151/73
[2017-02-08 04:00] VITALS: BP 118/51
[2017-02-08 06:41] LABS: CARBON DIOXIDE 32 mmol/L (21-32); CHLORIDE 103 mmol/L (98-107); CREATININE 0.8 mg/dL (0.6-1.3); GLUCOSE 90 mg/dL (74-106); MAGNESIUM 2.1 mg/dL (1.8-2.4); PHOSPHOROUS 5.2 mg/dL (2.5-4.9); POTASSIUM 4.5 mmol/L (3.5-5.1); UREA NITROGEN, BLOOD 7 mg/dL (7-18)
--- NOTE | 2017-02-08 06:56 | NUR ---
END OF SHIFT NOTE: Patient endorsed to day shift nurse in stable condition. Report given. Patient is a 21 year old male admitted to [facility] on 02/05/2017 for medically supervised withdrawal from ETOH (Wine) and Opioid (Heroin via IV), continue 5 Day Subutex Taper since 02/07/2017 with tolerated well without ASE. Patient remained compliant with treatment, medications and diet regime. Patient reports NKA. Patient is on Full Code, Regular Diet, Fall and Seizures Precautions. Upon endorsement, patient is in his room. Patient is on contact isolation at this time r/t scabies. Treatment done on 02/05/17. Patient did not participate in groups or activities. Patient is cooperative. Patient appears mildly intoxicated and answers questions appropriately. Last assessment done at 0400: COWS 4, CIWA 4. 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 Patient denies SI/HI. VS at 0400: T: 98.0; BP: 118/51; HR: 74; RR:16; O2 SAT: 98%, pain level "0/10". Respirations unlabored and even. Skin is warm and dry to touch. Patient has scattered rash, round, red, and non-raised at torso and BUE. Educate client to avoid scratching skin to prevent injury, he verbalized understanding. Encouraged fluids as tolerated. Encourage to attend group activities PRN Seroquel PO and PRN Motrin PO administrated last night were effective. Patient remained compliant with treatment, and medications. Patient slept 5 hours 25 min, intake 500 ml, voided x1. All needs met. Safety measures on place. Call light within reach, bed in lowest position and locked, padded rails up bilaterally.
[2017-02-08 06:58] LABS: BASOPHILS % (AUTO) 0.9 % (0.0-2.0); EOSINOPHILS # (AUTO) 0.2 K/uL (0.0-0.7); EOSINOPHILS % (AUTO) 2.9 % (0.0-7.0); HEMOGLOBIN 14.1 G/DL (14.0-18.0); LYMPHOCYTES # (AUTO) 2.6 K/UL (0.8-4.8); MEAN CORPUSCULAR HEMOGLOBIN 28.4 UUG (27.0-31.0); MEAN CORPUSCULAR HGB CONC 34 g/dL (32.0-37.0); MEAN CORPUSCULAR VOLUME 84.8 FL (82.0-92.0); MONOCYTES # (AUTO) 0.7 K/UL (0.1-1.30); MONOCYTES % (AUTO) 12.3 % (0.0-11.0); NEUTROPHILS # (AUTO) 2.1 K/UL (1.8-8.9); NEUTROPHILS % (AUTO) 37.9 % (38.5-71.5); PLATELET COUNT (AUTO) 356 K/UL (150-450)
[2017-02-08 07:06] LABS: WHITE BLOOD COUNT (AUTO) 5.6 K/UL (4.0-11.2)
[2017-02-08 07:07] LABS: HEMATOCRIT 42.1 % (40-50); RED BLOOD CELL COUNT(AUTO) 4.96 MIL/UL (4.7-6.1)
--- NOTE | 2017-02-08 07:30 | NUR ---
Start of shift note; Patient is AOX4. Patient is a 21 year old male admitted on 02/05/17 for Opiate withdrawals. Patient was placed on a 4 day Subutex taper,no adverse reactions noted. Patient reported history of peptic ulcer, insomnia. No known allergies noted, on full code status. Patient remained on contact isolation for possible scabies, treatment was completed on 02/05-02/06/17. Patient denies any itchiness or symptoms of scabies. Educated patient regarding the importance of preventing infection and observing contact precautions, patient verbalized understanding. All safety measures secured. Will continue to monitor patient.
[2017-02-08 08:00] VITALS: BP 123/68
[2017-02-08] MEDS: BUPRENORPHINE HCL 2 MG TAB.SUBL SL SCH ×3 (09:04→21:24)
[2017-02-08] MEDS: FOLIC ACID 1 MG TABLET PO SCH (09:04)
[2017-02-08] MEDS: THIAMINE HCL 100 MG TABLET PO SCH (09:04)
--- NOTE | 2017-02-08 11:50 | NUR ---
DC Isolation Order Retail Coordinator received call from Dr. Conner whom provided contract technical writer with order to discontinue pt's isolation. Pt's primary nurse made aware.
--- NOTE | 2017-02-08 11:55 | NUR ---
communication; Dr. Gotti notified regarding Dr. Conner's telephone order to discontinue contact isolation.
[2017-02-08 12:00] VITALS: BP 120/70
--- NOTE | 2017-02-08 14:01 | NUR ---
Therapist prompted client about group times. Client stated he probably won't go today because he is not feeling well.
[2017-02-08 16:00] VITALS: BP 128/61
--- NOTE | 2017-02-08 16:02 | NUR ---
Therapist prompted client to attend daily group sessions. Client stated that he would attend.
--- NOTE | 2017-02-08 18:44 | NUR ---
End of shift note; Patient is AOX4. Patient is a 21 year old male admitted on 02/05/17 for Opiate withdrawals. Patient was placed on a 4 day Subutex taper,no adverse reactions noted. Patient reported history of peptic ulcer, insomnia. No known allergies noted, on full code status. Patient remained compliant with treatment plan and medication regime. Medications were effective in reducing withdrawal symptoms. Met all needs.
[2017-02-08 20:00] VITALS: BP 138/75
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
--- NOTE | 2017-02-08 22:24 | NUR ---
PRN Motrin and Seroquel reassessment PRN Motrin and Seroquel effective. Pt is lying in bed resting with eyes closed. Respirations even and unlabored. Safety measures in place.
--- NOTE | 2017-02-09 | NUR ---
0000 Vitals refused/COWS and CIWA deferred Pt refused to be woken for 0000 Vitals. He is lying in bed resting with eyes closed. Respirations even and unlabored. COWS and CIWA ordered Q4HWA. Safety measures in place.
--- NOTE | 2017-02-09 04:00 | NUR ---
0400 Vitals refused/COWS and CIWA deferred Pt refused to be woken for 0400 Vitals. He is lying in bed resting with eyes closed. Respirations even and unlabored. COWS and CIWA ordered Q4HWA. Safety measures in place.
--- NOTE | 2017-02-09 07:10 | NUR ---
END OF SHIFT Report provided to day shift nurse. Pt is lying in bed resting. He is a 21 yo male admitted to [facility] on 02/05 for opiate dependence. He is A&O x4. NKA, full code status, and on a regular diet. He has a PMH of peptic ulcer, insomnia, and he presented on this admission with scabies that has been treated. On admission he admitted to using heroin 1.5-2 grams per day for 10 days and unspecified amount of wine for 5 days. 4 day subutex taper started on 02/06. He has left shoulder pain. PT eval ordered for today. PRN Motrin and Seroquel administered. Last COWS was 4 and CIWA 3. He drank 2000mL and slept for 2 hours. Fall and seizure precautions ordered. Bed is down with call light in reach.
--- NOTE | 2017-02-09 07:13 | NUR ---
Start of shift note; Patient is AOX4. Patient is a 21 year old male admitted on 02/05/17 for Opiate withdrawals. Patient was placed on a 4 day Subutex taper,no adverse reactions noted. Patient reported history of peptic ulcer, insomnia. No known allergies noted, on full code status. Patient's last COWS score is 4 and last CIWA score is 3 at 0400. Patient received PRN Motrin and PRN Seroquel last night , noted to be effective per night nurse. All safety measures secured. Will continue to monitor patient.
[2017-02-09 08:00] VITALS: BP 129/63
[2017-02-09] MEDS: THIAMINE HCL 100 MG TABLET PO SCH (08:46)
[2017-02-09] MEDS: FOLIC ACID 1 MG TABLET PO SCH (08:46)
[2017-02-09] MEDS ORDERED: BUPRENORPHINE HCL 2 MG TAB.SUBL SL SCH (09:00)
[2017-02-09 12:00] VITALS: BP 136/67
[2017-02-09] MEDS ORDERED: HYDR-3895 PO (13:49)
[2017-02-09 13:53] LABS: *AMPHETAMINE, URINE NEGATIVE (NEGATIVE); *BARBITURATE, URINE NEGATIVE (NEGATIVE); *CANNABINOID, URINE NEGATIVE (NEGATIVE); *COCCAINE, URINE NEGATIVE (NEGATIVE); *OPIATE, URINE NEGATIVE (NEGATIVE); *PHENCYCLIDINE SCREEN,URINE NEGATIVE (NEGATIVE)
--- NOTE | 2017-02-09 14:08 | NUR ---
Therapist prompted client to attend daily group sessions, and client stated that he would attend if he was feeling up to it.
[2017-02-09] MEDS: IBUPROFEN 600 MG TABLET PO PRN ×2 (15:05→21:47)
--- NOTE | 2017-02-09 15:05 | NUR ---
PRN medication; Patient is complaining of shoulder pain rated 5/10. PRN Motrin PO given as per ordered. Will continue to monitor patient.
[2017-02-09 16:00] VITALS: BP 106/69
--- NOTE | 2017-02-09 16:05 | NUR ---
Re-assessment; Patient reported decrease of pain from 5 to 2/10 on pain scale. PRN medication is effective.
--- NOTE | 2017-02-09 18:28 | NUR ---
End of shift note; Patient is AOX4. Patient is a 21 year old male admitted on 02/05/17 for Opiate withdrawals. Patient was placed on a 4 day Subutex taper,no adverse reactions noted. Patient reported history of peptic ulcer, insomnia. No known allergies noted, on full code status. Patient remained compliant with treatment plan and medication regime. Medications were effective in reducing withdrawal symptoms. Patient is medically scheduled for discharge tomorrow. Met all needs.
--- NOTE | 2017-02-09 19:50 | NUR ---
START OF SHIFT Received report from day shift nurse. Pt attended a group meeting and returned to his room after. He is a 21 yo male admitted to [facility] on 02/05 for opiate dependence. He is A&O x4 and ambulatory. NKA, full code status, and on a regular diet. Pt has a PMH of peptic ulcer, insomnia, and scabies treated. Upon admission he reported using heroin 1.5-2 grams per day for 10 days and unspecified amount of wine for 5 days. 4 day subutex taper started completed today and he is scheduled for discharge tomorrow. He has right shoulder pain. PT eval done today with orders for a sling. Minimal s/s of withdrawal noted. He denies N/V/D. Fall and seizure precautions ordered. Bed is down with call light in reach.
[2017-02-09 20:00] VITALS: BP 143/76
[2017-02-09] MEDS: QUETIAPINE FUMARATE 100 MG TABLET PO PRN (21:47)
--- NOTE | 2017-02-09 21:48 | NUR ---
PRN Motrin and Seroquel Pt reports left shoulder pain 6/10 and inability to sleep. PRN Motrin and Seroquel administered.
[2017-02-09] MEDS ORDERED: QUETIAPINE FUMARATE 100 MG TABLET ONE (21:50)
--- NOTE | 2017-02-10 07:20 | NUR ---
END OF SHIFT Report provided to day shift nurse. Pt is lying in bed resting. He is a 21 yo male admitted to [facility] on 02/05 for opiate dependence. He is A&O x4 and ambulatory. NKA, full code status, and on a regular diet. Pt has a PMH of peptic ulcer, insomnia, and scabies treated. Upon admission he reported using heroin 1.5-2 grams per day for 10 days and unspecified amount of wine for 5 days. 4 day subutex taper completed yesterday and he is scheduled for discharge today. He has right shoulder pain. PT eval done yesterday. Orders placed for a sling to be delivered by central supply. Last COWS 2 and CIWA 1. PRN Seroquel and Motrin administered. He drank 2652mL and slept for 7 hours. Fall and seizure precautions ordered. Bed is down with call light in reach.
--- NOTE | 2017-02-10 07:51 | NUR ---
START OF SHIFT NOTE: Received report from night guard nurse. Pt is a 21 yo male admitted to [facility] on 02/05/17 for opiate dependence. Pt to be discharged this AM. Pt is alert and oriented X4. Color good, skin warm and dry. Respirations even and unlabored. Safety precautions observed. Call light within reach.
[2017-02-10] MEDS: THIAMINE HCL 100 MG TABLET PO SCH (08:21)
[2017-02-10] MEDS: FOLIC ACID 1 MG TABLET PO SCH (08:21)
--- NOTE | 2017-02-10 08:33 | NUR ---
VSS Discharge papers and medication bag signed.
[2017-02-10 08:34] VITALS: BP 110/60
--- NOTE | 2017-02-10 09:40 | NUR ---
Pt discharged in stable condition with all valuable, belongings and home meds. Pt denies SI/HI. To home via private car.
== END 2017-02-10 09:40 | disposition home or self-care (01) | DRG 895 ==
LOC: SRC 12:30
PROVIDERS: ADMIT Internal Medicine; ATTEND Internal Medicine
PROC: HZ2ZZZZ Detoxification Services for Substance Abuse Treatment (ICD-10-PCS; principal; 2017-02-05)
PROC: HZ41ZZZ Group Counseling for Substance Abuse Treatment, Behavioral (ICD-10-PCS; 2017-02-09)
DX: F11.23 Opioid dependence with withdrawal (principal); F10.10 Alcohol abuse, uncomplicated; Y90.9 Presence of alcohol in blood, level not specified; F17.210 Nicotine dependence, cigarettes, uncomplicated; G47.00 Insomnia, unspecified; Z59.0 Homelessness; Z59.1 Inadequate housing; K27.7 Chronic peptic ulcer, site unspecified, without hemorrhage or perforation; B86 Scabies; S43.421A Sprain of right rotator cuff capsule, initial encounter; V19.9XXA Pedal cyclist (driver) (passenger) injured in unspecified traffic accident, initial encounter; Y92.89 Other specified places as the place of occurrence of the external cause; D72.829 Elevated white blood cell count, unspecified
CPT/HCPCS: 36415; 70030-TC; 80307; 80361; 83735; 84100; 85025; 86580; 86592; 86705; 86803; 87340; 87806; 97161; A4663; G0480

== ENCOUNTER 2017-06-19 20:32 | Inpatient (IN) | payer BC, OTHER ==
[~2017-06-19] VITALS: Ht 177.8 cm; Wt 87.1 kg
[~2017-06-19 20:32] MED LIST changes: +CYAN10006 IM; +PROP40TA7 PO; -QUET200T PO
--- NOTE | 2017-06-19 21:10 | NUR ---
PRE-ADMISSION NOTE Px is a 21 y/o male, seen at intake, A&Ox4, no SOB with moderate anxiety noted at this time. Discussed with patient the admission policies of the unit. Patient is coherent and able to respond to questions appropriately. Px is ambulatory with steady gait. Vital signs taken and as follows: BP: 133/61, P: 87, R: 18, O2: 95%, T: 97, PA: 0. Px verbalized understanding of instructions and teachings regarding disposal of narcotic and other controlled home medications, unit protocols such as taking of vital signs Q4H and handling and disposal of contraband. We'll continue with admission upon px's arrival on the unit.
[2017-06-19] MEDS ORDERED: IBUPROFEN 400 MG TABLET PO PRN (21:15)
[2017-06-19] MEDS ORDERED: CLONIDINE HCL 0.1 MG TABLET PO PRN (21:15)
[2017-06-19] MEDS ORDERED: HYDROXYZINE PAMOATE 25 MG CAPSULE PO PRN (21:15)
[2017-06-19] MEDS ORDERED: MAG HYDROX/AL HYDROX/SIMETH 30 ML LIQUID UDC PO PRN (21:15)
[2017-06-19] MEDS ORDERED: MIRALAX 17 GM POWD.PACK PO PRN (21:15)
[2017-06-19] MEDS ORDERED: MAGNESIUM HYDROXIDE 30 ML LIQUID UDC PO PRN (21:15)
[2017-06-19] MEDS ORDERED: BUPRENORPHINE HCL 2 MG TAB.SUBL SL PRN (21:15)
[2017-06-19] MEDS ORDERED: diphenhydrAMINE 50 MG CAPSULE PO PRN (21:15)
[2017-06-19] MEDS ORDERED: DICYCLOMINE HCL 20 MG TABLET PO PRN (21:15)
[2017-06-19] MEDS ORDERED: LOPERAMIDE HCL 2 MG CAPSULE PO PRN ×2 (21:15)
--- NOTE | 2017-06-19 21:25 | NUR ---
ADMISSION NOTE Px is a 21 y/o male admitted on 06/19/17 for Heroin dependence, arrived on the unit at 2125. Px has NKA, denies history of seizures. Px was able to provide UDS. Upon admission COWS 4, BP: 134/66, P: 81, R: 18, O2: 95%, T: 97.6, PA: 0. Weight 192, height 510. Px reports he does not have a PCP. Px reported quit smoking last 2.5 months ago. Px denies being hospitalized within past 30 days. Px is able to understand and respond to all questions pertaining to his hospitalization. Substance Abuse History is as follows: 1. Heroin 1- 2 G IV and/or smoke for 2 weeks. Last taken 06/19/2017 1 G. Using Heroin for 6 years. Pxs longest sober period was 3 years from 15 y/o to 18 y/o. Px reports approximately 10 treatment histories. Px reports his brother uses Heroin. PMHx: Anxiety, depression and gastric ulcers. Px denies any hx of seizures. Px did not bring any medications from home, but reports taking Famotidine 20 mg/cap, 2 caps daily. Upon assessment, px is A&Ox4, px is mildly intoxicated, presents with anxiety, has mild tremors, stomach cramps and Nausea. Respirations are even and unlabored. Px denies SOB, chest pain, N/V/D. Bowel sounds active x 4, abdomen soft. PERRLA. Skin intact, no open wounds noted. Px denies SI/HI. Educational information provided and left at bedside. Px oriented to room and encouraged to notify staff with any concerns. Safety measures in place. Call light within reach, side rails up x 2, bed locked and in low position. We'll continue to monitor.
[2017-06-19] MEDS ORDERED: FAMO20TA8 PO (21:29)
[2017-06-19 21:41] LABS: BASOPHILS # (AUTO) 0.1 K/uL (0.0-8.0); BASOPHILS % (AUTO) 0.7 % (0.0-2.0); EOSINOPHILS % (AUTO) 0.1 % (0.0-7.0); HEMATOCRIT 45.4 % (36.7-47.1); HEMOGLOBIN 15.9 g/dL (12.5-16.3); LYMPHOCYTES # (AUTO) 1.8 K/uL (20.0-40.0); LYMPHOCYTES % (AUTO) 24.3 % (20.5-51.5); MEAN CORPUSCULAR HEMOGLOBIN 28.7 uug (23.8-33.4); MEAN CORPUSCULAR HGB CONC 35 g/dL (32.5-36.3); MEAN CORPUSCULAR VOLUME 82.2 fL (73.0-96.2); MONOCYTES # (AUTO) 0.6 K/uL (2.0-10.0); MONOCYTES % (AUTO) 8.5 % (0.0-11.0); NEUTROPHILS % (AUTO) 66.4 % (38.5-71.5); PLATELET COUNT (AUTO) 347 K/uL (152-348); RED BLOOD CELL COUNT(AUTO) 5.53 MIL/uL (4.06-5.63); WHITE BLOOD COUNT (AUTO) 7.5 K/uL (3.6-10.2)
[2017-06-19 21:47] LABS: ALANINE AMINOTRANSFERASE 26 U/L (16-63); ALKALINE PHOSPHATASE 116 U/L (50-136); AMYLASE 35 U/L (25-115); ASPARTATE AMINOTRANSFERASE 22 U/L (15-37); BILIRUBIN,TOTAL 0.5 mg/dL (0.2-1.0); CARBON DIOXIDE 30 mmol/L (21-32); CHLORIDE 101 mmol/L (98-107); GLUCOSE 114 mg/dL (74-106); LIPASE 75 U/L (73-393); MAGNESIUM 2.4 mg/dL (1.8-2.4); POTASSIUM 4.3 mmol/L (3.5-5.1); TOTAL PROTEIN, SERUM 9.3 g/dL (6.4-8.2); UREA NITROGEN, BLOOD 11 mg/dL (7-18)
[2017-06-19 21:58] LABS: THYROID STIMULATING HORMONE 1.295 mIU/mL (0.358-3.740)
[2017-06-19 21:59] LABS: ETHANOL < 3 MG/DL (0-0)
[2017-06-19 22:01] LABS: *AMPHETAMINE, URINE NEGATIVE (NEGATIVE); *BARBITURATE, URINE NEGATIVE (NEGATIVE); *CANNABINOID, URINE NEGATIVE (NEGATIVE); *COCCAINE, URINE NEGATIVE (NEGATIVE); *OPIATE, URINE POSITIVE (NEGATIVE); *PHENCYCLIDINE SCREEN,URINE NEGATIVE (NEGATIVE)
[2017-06-19] MEDS: ACETAMINOPHEN 325 MG TABLET PO PRN (23:32)
--- NOTE | 2017-06-19 23:32 | NUR ---
PRN meds for H/A Px complained of H/A 02/10. Motrin 400 mg/tab, 1 tab and Tylenol 325 mg/tab, 2 tabs given PO as PRN meds. We'll continue to monitor.
[2017-06-19] MEDS ORDERED: IBUPROFEN 400 MG TABLET ONE (23:44)
[2017-06-19] MEDS ORDERED: ACETAMINOPHEN 325 MG TABLET ONE (23:45)
[2017-06-20] VITALS: BP 119/56
--- NOTE | 2017-06-20 00:22 | NUR ---
PRN Benadryl and Vistaril Px asked for pills to help him sleep. Benadryl 50 mg/cap, 1 cap and Vistaril 25 mg/cap, 2 caps given PO as PRN meds. We'll continue to monitor.
--- NOTE | 2017-06-20 00:32 | NUR ---
Reassessment of H/A Px verbalized that hi H/A improved from pain scale of 8/10 to 4/10. We'll continue to monitor.
[2017-06-20] MEDS ORDERED: diphenhydrAMINE 50 MG CAPSULE ONE (00:37)
[2017-06-20] MEDS ORDERED: HYDROXYZINE PAMOATE 25 MG CAPSULE ONE (00:37)
[2017-06-20 04:00] VITALS: BP 112/60
--- NOTE | 2017-06-20 04:00 | NUR ---
COWS deferred COWS deferred due to the px is asleep, to assess if the px is awake per doctor's order. We'll continue to monitor.
--- NOTE | 2017-06-20 07:06 | NUR ---
End of ShiftNotes 21 y/o male admitted on 06/19/2017 for Opiate dependence. Px is A&Ox4. Px has NKA, diet is No oily foods, and wishes to be in Full Code. Px has PMHx of anxiety, depression and stomach ulcer. During the shift at 2332, Px complained of H/A 8/10. Motrin 400 mg/tab, 1 tab and Tylenol 325 mg/tab, 2 tabs given PO as PRN meds. At 0022, Px asked for pills to help him sleep. Benadryl 50 mg/cap, 1 cap and Vistaril 25 mg/cap, 2 caps given PO as PRN meds. Oral intake of 1,500 ml, voided 3x, no BM. Slept for 4.5 hours Respirations even and unlabored. Bed on lowest position with side rails x2 up for safety. Call light within reach. We'll continue to monitor
--- NOTE | 2017-06-20 07:41 | NUR ---
Start of shift note; Received report from night nurse. Patient is a 21 year old male admitted on 06/19/17 for Opiate dependence. Patient to be evaluated by MD today for tape orders. Patient reported history of anxiety, depression, stomach ulcer. Patient is full code status, NKA. Patient's last COWS score of 4 per endorsement. Patient is on fall and seizure precaution. All safety measures secured.
[2017-06-20 08:00] VITALS: BP 108/61
[2017-06-20] MEDS: MULTIVITAMINS,THERAPEUTIC TABLET PO SCH (09:00)
[2017-06-20] MEDS ORDERED: TUBERCULIN,PURIF.PROT.DERIV. 5 TU/0.1 ML TEST ID ONE (09:00)
[2017-06-20 12:00] VITALS: BP 103/68
[2017-06-20] MEDS: BUPRENORPHINE HCL 2 MG TAB.SUBL SL SCH ×3 (12:16→20:05)
[2017-06-20 16:00] VITALS: BP 120/66
--- NOTE | 2017-06-20 18:52 | NUR ---
End of shift note; Patient is AOX4. Patient is a 21 year old male admitted on 06/19/17 for Opiate dependence. Patient was placed on a modified Subutex taper, no adverse reactions noted. Patient reported history of anxiety, depression, stomach ulcer. Patient is full code status. Patient remained compliant with treatment plan and medication regime. All safety measures secured. Met all needs.
--- NOTE | 2017-06-20 19:30 | NUR ---
End of Shift Notes Received 21 y/o male admitted on 06/19/2017 for Opiate dependence. Px is A&Ox4. Px has NKA, diet is No oily foods, and wishes to be in Full Code. Px has PMHx of anxiety, depression and stomach ulcer. During the rounds at 1930, px complained of H/A of 8/10, stomach cramps, nausea, runny nose and hot/cold chills. Respirations even and unlabored. Bed on lowest position with side rails x2 up for safety. Call light within reach. We'll continue to monitor. Addendum: 06/20/17 at 2015 by KYLER CASTAÑEDA RN Start of Shift Notes
[2017-06-20 20:00] VITALS: BP 119/62
[2017-06-20] MEDS: GABAPENTIN 300 MG CAPSULE PO SCH (20:05)
[2017-06-20] MEDS: QUETIAPINE FUMARATE 100 MG TABLET PO SCH (20:05)
[2017-06-20] MEDS: ACETAMINOPHEN 325 MG TABLET PO PRN (20:06)
[2017-06-20] MEDS: IBUPROFEN 600 MG TABLET PO PRN (20:06)
--- NOTE | 2017-06-20 20:06 | NUR ---
PRN meds Px complained of H/A of 8/10, and stomach cramps. Motrin 600 mg/tab, 1 tab; Tylenol 325 mg/tab, 2 tabs; Bentyl 20 mg/tab, 1 tab given PO as PRN meds. We'll continue to monitor.
[2017-06-21] VITALS: BP 116/67
--- NOTE | 2017-06-21 | NUR ---
COWS deferred COWS deferred due to the px is asleep, to assess if the px is awake per doctor's order. We'll continue to monitor.
[2017-06-21 04:00] VITALS: BP 117/69
--- NOTE | 2017-06-21 04:00 | NUR ---
COWS deferred COWS deferred due to the px is asleep, to assess if the px is awake per doctor's order. We'll continue to monitor.
[2017-06-21] MEDS: PANTOPRAZOLE SODIUM 40 MG TABLET.DR PO SCH (06:30)
--- NOTE | 2017-06-21 07:10 | NUR ---
End of Shift Notes 21 y/o male admitted on 06/19/2017 for Opiate dependence. Px is A&Ox4. Px has NKA, diet is No oily foods, and wishes to be in Full Code. Px has PMHx of anxiety, depression and stomach ulcer. During the shift, px complained of H/A, stomach cramps, nausea, runny nose and hot/cold chills. Motrin 600 mg/tab, 1 tab; Tylenol 325 mg/tab, 2 tabs; Bentyl 20 mg/tab, 1 tab given PO as PRN meds. Oral intake of 1,200 ml, voided 2x, no BM. Slept for 7 hours. Respirations even and unlabored. Bed on lowest position with side rails x2 up for safety. Call light within reach. We'll continue to monitor.
--- NOTE | 2017-06-21 07:30 | NUR ---
START OF SHIFT Pt 21 y/o admitted for heroin dependence. Pt received in room on bed with eyes closed resting, but easily arousable to name. Pt alert and oriented to name, place, and time. Perrla. Skin warm and slightly moist to touch. Bilateral hand tremors noted. It was reported that pt slept for 7 hours last night. Bed on lowest position with side rails x2 up for safety. Call light within reach. No distress noted at this time.
[2017-06-21 08:00] VITALS: BP 100/48
[2017-06-21] MEDS ORDERED: BUPRENORPHINE HCL 2 MG TAB.SUBL SL SCH (09:00)
[2017-06-21] MEDS: GABAPENTIN 300 MG CAPSULE PO SCH ×3 (09:09→20:44)
[2017-06-21] MEDS: MULTIVITAMINS,THERAPEUTIC TABLET PO SCH (09:09)
[2017-06-21 12:59] VITALS: BP 108/53
[2017-06-21 13:07] LABS: HEPATITIS B SURFACE AG Negative (Negative)
[2017-06-21] MEDS: BACLOFEN 10 MG TABLET PO SCH ×2 (14:20→20:43)
[2017-06-21] MEDS: BUPRENORPHINE HCL 2 MG TAB.SUBL SL SCH ×2 (14:20→20:44)
[2017-06-21] MEDS: DICYCLOMINE HCL 20 MG TABLET PO SCH ×2 (14:20→20:44)
[2017-06-21 16:00] VITALS: BP 117/62
--- NOTE | 2017-06-21 18:37 | NUR ---
END OF SHIFT Pt 21 y/o male admitted for heroin dependence. Pt alert and oriented to name, place, and time. Perrla. Skin warm and moist to touch. Respirations even and unlabored. Bilateral hand tremors noted. Pt with periods of chills and sweats throughout the day. Pt observed mostly isolative to room throughout the day. Pt did not attend group activity. Pt was seen by MD today. Pt medication compliant and tolerated well. No ASE noted. Bed on lowest position with side rails x2 up for safety. Call light within reach. No distress noted at this time.
--- NOTE | 2017-06-21 19:30 | NUR ---
Start of Shift Notes Received 21 y/o male admitted on 06/19/2017 for Opiate dependence. Px is A&Ox4. Px has NKA, diet is No oily foods, and wishes to be in Full Code. Px has PMHx of anxiety, depression and stomach ulcer. During the rounds at 1930, px reported his anxiety is on moderate side. Respirations even and unlabored. Bed on lowest position with side rails x2 up for safety. Call light within reach. We'll continue to monitor.
[2017-06-21 20:00] VITALS: BP 115/60
[2017-06-21] MEDS: QUETIAPINE FUMARATE 100 MG TABLET PO SCH (20:43)
[2017-06-22] VITALS (7 sets, daily range): BP systolic 96–151; BP diastolic 48–85
--- NOTE | 2017-06-22 04:00 | NUR ---
COWS deferred COWS deferred at 0000 and 0400 due to the px is asleep, to assess if the px is awake per doctor's order. We'll continue to monitor.
[2017-06-22] MEDS: PANTOPRAZOLE SODIUM 40 MG TABLET.DR PO SCH (06:27)
--- NOTE | 2017-06-22 07:09 | NUR ---
End of Shift Notes 21 y/o male admitted on 06/19/2017 for Opiate dependence. Px is A&Ox4. Px has NKA, diet is No oily foods, and wishes to be in Full Code. Px has PMHx of anxiety, depression and stomach ulcer. During the shift, px reported his anxiety is on moderate side. Oral intake of 1,400 ml, voided 3x, BM 1x. Slept for 6 hours. Respirations even and unlabored. Bed on lowest position with side rails x2 up for safety. Call light within reach. We'll continue to monitor.
--- NOTE | 2017-06-22 07:29 | NUR ---
START OF SHIFT Pt 21 y/o admitted for heroin dependence. Pt received in room on bed with eyes closed resting, but easily arousable to name. Pt alert and oriented to name, place, and time. Perrla. Skin warm and slightly moist to touch. Bilateral hand tremors noted. It was reported that pt slept for 6 hours last night. Bed on lowest position with side rails x2 up for safety. Call light within reach. No distress noted at this time.
[2017-06-22] MEDS: DICYCLOMINE HCL 20 MG TABLET PO SCH ×3 (09:08→21:51)
[2017-06-22] MEDS: MULTIVITAMINS,THERAPEUTIC TABLET PO SCH (09:08)
[2017-06-22] MEDS: GABAPENTIN 300 MG CAPSULE PO SCH ×3 (09:08→21:50)
[2017-06-22] MEDS: BACLOFEN 10 MG TABLET PO SCH (09:08)
[2017-06-22] MEDS: BUPRENORPHINE HCL 2 MG TAB.SUBL SL SCH ×3 (09:09→21:52)
[2017-06-22] MEDS ORDERED: KETOROLAC TROMETHAMINE 30 MG INJ IM PRN (11:15)
[2017-06-22] MEDS: BACLOFEN 20 MG TABLET PO SCH ×2 (14:15→21:51)
--- NOTE | 2017-06-22 20:00 | NUR ---
START OF SHIFT NOTE RECEIVED REPORT FROM DAY SHIFT NURSE. PATIENT IS A 21 YEAR OLD MALE ADMITTED FOR OPIATE DEPENDENCE. UPON ADMISSION, PATIENT IS USING HEROIN 1-2 GRAM X/SMOKED FOR 2 WEEKS. PATIENT IS ON MODIFIED SUBUTEX TAPER. PATIENT REPORTS PMH OF ANXIETY , DEPRESSION AND STOMACH ULCER. NO OILY FOOD. PATIENT IS ON FALL PRECAUTION . SKIN INTACT. PATIENT DID NOT REQUIRE ANY PRN MEDICATION. VS STABLE. RECEIVED PATIENT ALERT AND ORIENTED X 4. RESPIRATION EVEN AND UNLABORED. PATIENT PRESENT WITH FLAT AFFECT MOOD. PATIENT REPORTS ANXIETY, ABDOMINAL CRAMPING, SWEATING , STUFFY NOSE, NO N/V AND DENIES ANY PAIN. SAFETY MEASURES IN PLACE. CALL LIGHT IN REACH. WILL CONTINUE TO MONITOR
[2017-06-22] MEDS: CLONIDINE HCL 0.1 MG TABLET PO SCH (21:51)
[2017-06-22] MEDS: QUETIAPINE FUMARATE 100 MG TABLET PO SCH (21:51)
[2017-06-23] VITALS: BP 104/59
--- NOTE | 2017-06-23 | NUR ---
COWS DEFERRED PATIENT SLEEPING. COWS DEFERRED. RESPIRATION EVEN AND UNLABORED. SAFETY MEASURES IN PLACE. CALL LIGHT IN REACH. WILL CONTINUE TO MONITOR
[2017-06-23 04:00] VITALS: BP 112/57
--- NOTE | 2017-06-23 04:00 | NUR ---
COWS DEFERRED PATIENT SLEEPING. COWS DEFERRED. RESPIRATION EVEN AND UNLABORED. SAFETY MEASURES IN PLACE. CALL LIGHT IN REACH. WILL CONTINUE TO MONITOR
[2017-06-23] MEDS: PANTOPRAZOLE SODIUM 40 MG TABLET.DR PO SCH (06:45)
--- NOTE | 2017-06-23 07:08 | NUR ---
Start of Shift Endorsement received from nightshift nurse. Pt is a 21 y/o male admitted for heroin dependence. Pt has been placed on a Modified Subutex taper. Pt is tolerating the taper and moderately withdrawing AEB COWS 5. Pt did not receive any PRN medications. Pt reports sleeping 6 hours. PT is alert and oriented x4. Pt is in STABLE condition at this time. Remains compliant with medication and diet regimen. All needs have been met, All safety measures in place per hospital policy. Bed in lowest position, side rails up x2, call-light within reach. Will continue to monitor
--- NOTE | 2017-06-23 07:20 | NUR ---
END OF SHIFT NOTE PATIENT IS A 21 YEAR OLD MALE ADMITTED FOR OPIATE DEPENDENCE. UPON ADMISSION, PATIENT IS USING HEROIN 1-2 GRAM X/SMOKED FOR 2 WEEKS. PATIENT IS ON MODIFIED SUBUTEX TAPER. PATIENT REPORTS PMH OF ANXIETY , DEPRESSION AND STOMACH ULCER. NO OILY FOOD. PATIENT IS ON FALL PRECAUTION . SKIN INTACT. PATIENT DID NOT REQUIRE ANY PRN MEDICATION. PATIENT COMPLIANT WITH MEDICATIONS AND TREATMENT PLAN. PATIENT ATTENDED 1 GROUP. SAFETY MEASURES IN PLACE. CALL LIGHT IN REACH. WILL CONTINUE TO MONITOR. LAST COWS 5. SLEPT 6 HOURS. FLUID INTAKE1,919 ML. VOIDED X 4. NO BM.
[2017-06-23 08:00] VITALS: BP 112/54
[2017-06-23] MEDS: GABAPENTIN 300 MG CAPSULE PO SCH ×3 (08:43→21:38)
[2017-06-23] MEDS: BACLOFEN 20 MG TABLET PO SCH ×3 (08:43→21:38)
[2017-06-23] MEDS: MULTIVITAMINS,THERAPEUTIC TABLET PO SCH (08:43)
[2017-06-23] MEDS: CLONIDINE HCL 0.1 MG TABLET PO SCH ×2 (08:44→21:38)
[2017-06-23] MEDS: DICYCLOMINE HCL 20 MG TABLET PO SCH ×3 (08:44→21:38)
[2017-06-23] MEDS ORDERED: BUPRENORPHINE HCL 2 MG TAB.SUBL SL SCH (09:00)
[2017-06-23 12:00] VITALS: BP 125/64
[2017-06-23] MEDS: BUPRENORPHINE HCL 2 MG TAB.SUBL SL SCH ×2 (15:05→21:37)
[2017-06-23 16:00] VITALS: BP 141/88
--- NOTE | 2017-06-23 18:55 | NUR ---
End of Shift Endorsement given to nightshift nurse. Pt is a 21 y/o male admitted for heroin dependence. Pt has been placed on a Modified Subutex taper. Pt is tolerating the taper and moderately withdrawing AEB COWS 9. Pt did not receive any PRN medications. Pt participated in groups and activities. Educated pt on diet and medication regimen. intake: 1500ml, Void x4, BM x1. PT is alert and oriented x4. Pt is in STABLE condition at this time. Remains compliant with medication and diet regimen. All needs have been met, All safety measures in place per hospital policy. Bed in lowest position, side rails up x2, call-light within reach. Will continue to monitor
--- NOTE | 2017-06-23 19:30 | NUR ---
Start of Shift Note: Report received from day shift nurse. Pt is 21M, admitted for Heroin Dependence on 06/19/17. Pt in room on the bed with eyes closed upon start of shift. Pt is AOx4 without s/s of acute distress noted. Respirations even and unlabored. Pt is full code, on regular diet, and on fall precautions. Pt noted with NKA. Pt reports hx of Anxiety, Depression, and stomach ulcers. Pt is currently on a Subutex taper to manage withdrawal symptoms. Per day shift nurse, last COWS was 8 @ 1600. Bed in lowest position. Side rails up x2. Call light functioning and within reach. All needs attended and met. Will continue to monitor.
[2017-06-23 20:00] VITALS: BP 130/92
[2017-06-23] MEDS: QUETIAPINE FUMARATE 100 MG TABLET PO SCH (21:38)
[2017-06-24] VITALS: BP 117/56
--- NOTE | 2017-06-24 04:00 | NUR ---
COWS deferred and Vitals Refused Pt in bed with eyes closed. Pt refused vitals to be taken at this time. Respirations even and unlabored. RR: 16. Call light functioning and within reach. All needs attended and met. Will continue to monitor.
[2017-06-24] MEDS: PANTOPRAZOLE SODIUM 40 MG TABLET.DR PO SCH (06:51)
--- NOTE | 2017-06-24 07:10 | NUR ---
Start of Shift Endorsement received from nightshift nurse. Pt is a 21 y/o male admitted for heroin dependence. Pt has been placed on a Modified Subutex taper. Pt is tolerating the taper and moderately withdrawing AEB COWS 6 at midnight. Pt did not receive any PRN medications. Pt reports sleeping 5 hours. PT is alert and oriented x4. Pt is in STABLE condition at this time. Remains compliant with medication and diet regimen. All needs have been met, All safety measures in place per hospital policy. Bed in lowest position, side rails up x2, call-light within reach. Will continue to monitor
[2017-06-24 08:00] VITALS: BP 116/60
[2017-06-24] MEDS: GABAPENTIN 300 MG CAPSULE PO SCH ×3 (08:53→20:34)
[2017-06-24] MEDS: BACLOFEN 20 MG TABLET PO SCH ×3 (08:53→20:34)
[2017-06-24] MEDS: CLONIDINE HCL 0.1 MG TABLET PO SCH ×3 (08:53→20:39)
[2017-06-24] MEDS: MULTIVITAMINS,THERAPEUTIC TABLET PO SCH (08:53)
[2017-06-24] MEDS: DICYCLOMINE HCL 20 MG TABLET PO SCH ×3 (08:53→20:34)
[2017-06-24] MEDS ORDERED: BUPRENORPHINE HCL 2 MG TAB.SUBL SL SCH (09:00)
[2017-06-24 12:00] VITALS: BP 112/75
[2017-06-24] MEDS: IBUPROFEN 600 MG TABLET PO PRN (13:37)
[2017-06-24] MEDS: BUPRENORPHINE HCL 2 MG TAB.SUBL SL SCH ×3 (13:37→20:34)
[2017-06-24 16:00] VITALS: BP 116/60
--- NOTE | 2017-06-24 18:57 | NUR ---
End of Shift Endorsement given to nightshift nurse. Pt is a 21 y/o male admitted for heroin dependence. Pt has been placed on a Modified Subutex taper. Pt is tolerating the taper and moderately withdrawing AEB COWS 5. Pt did not receive any PRN medications. Pt participated in groups and activities. Encouraged pt to participate in groups. Educated pt on S/E of medications.. intake: 1914ml, Void x4, BM x1. PT is alert and oriented x4. Pt is in STABLE condition at this time. Remains compliant with medication and diet regimen. All needs have been met, All safety measures in place per hospital policy. Bed in lowest position, side rails up x2, call-light within reach. Will continue to monitor
[2017-06-24 20:00] VITALS: BP 103/60
--- NOTE | 2017-06-24 20:00 | NUR ---
START OF SHIFT NOTE RECEIVED REPORT FROM DAY SHIFT NURSE. PATIENT IS A 21 YEAR OLD MALE ADMITTED FOR OPIATE DEPENDENCE. PATIENT IS ON EXTENDED SUBUTEX TAPER. PATIENT REPORTS PMH OF ANXIETY, DEPRESSION AND STOMACH ULCER. PATIENT WAS GIVEN PRN MOTRIN. LAST COWS 7. RECEIVED PATIENT IN ROOM, RESTING. PATIENT STATES HES TIRED, HE REPORTS ANXIETY, SWEATING ESPECIALLY WAKING UP AT TIMES SWEATING, NOSE IS STUFFY AND ABDOMINAL CRAMPING . WILL CONTINUE TO MONITOR
[2017-06-24] MEDS: QUETIAPINE FUMARATE 100 MG TABLET PO SCH (20:34)
[2017-06-25] VITALS: BP 121/58
--- NOTE | 2017-06-25 | NUR ---
COWS DEFERRED PATIENT SLEEPING. COWS DEFERRED. VS REFUSED. RESPIRATION EVEN AND UNLABORED. SAFETY MEASURES IN PLACE. CALL LIGHT IN REACH. WILL CONTINUE TO MONITOR.
--- NOTE | 2017-06-25 04:00 | NUR ---
COWS DEFERRED PATIENT SLEEPING. COWS DEFERRED. VS REFUSED. RESPIRATION EVEN AND UNLABORED. SAFETY MEASURES IN PLACE. CALL LIGHT IN REACH. WILL CONTINUE TO MONITOR.
[2017-06-25] MEDS: PANTOPRAZOLE SODIUM 40 MG TABLET.DR PO SCH (06:49)
--- NOTE | 2017-06-25 07:12 | NUR ---
Start of shift note; Received report from night nurse. Patient is a 21 year old male admitted on 06/19/17 for Opiate dependence. Patient was placed on modified Subutex taper. Patient reported history of anxiety, depression, stomach ulcer. Patient is full code status, NKA. Patient's last COWS score of 6 per endorsement. Patient slept for 4 hours. Patient is on fall and seizure precaution. All safety measures secured. Will continue to monitor patient.
--- NOTE | 2017-06-25 07:21 | NUR ---
END OF SHIFT NOTE PATIENT CONTINUE ON EXTENDED SUBUTEX TAPER, TOLERATED WELL, NO ADVERSE REACTION. PATIENT COMPLIANT WITH MEDICATION AND TREATMENT PLAN. PATIENT DID NOT REQUIRE ANY PRN MEDICATION . CONTINUE TO ENCOURAGE FLUIDS AND MONITOR WITHDRAWAL SYMPTOMS. WILL CONTINUE TO MONITOR. SLEPT 4 HOURS. FLUID INTAKE 1,537 ML. VOIDED X 2 . BM X 1. LAST COWS 6.
[2017-06-25 08:00] VITALS: BP 111/65
[2017-06-25] MEDS: CLONIDINE HCL 0.1 MG TABLET PO SCH ×3 (08:57→20:37)
[2017-06-25] MEDS: BUPRENORPHINE HCL 2 MG TAB.SUBL SL SCH ×3 (08:57→20:37)
[2017-06-25] MEDS: DICYCLOMINE HCL 20 MG TABLET PO SCH ×3 (08:57→20:36)
[2017-06-25] MEDS: GABAPENTIN 300 MG CAPSULE PO SCH ×3 (08:57→20:37)
[2017-06-25] MEDS: MULTIVITAMINS,THERAPEUTIC TABLET PO SCH (08:57)
[2017-06-25] MEDS: BACLOFEN 20 MG TABLET PO SCH ×3 (08:57→20:36)
[2017-06-25 12:00] VITALS: BP 120/68
[2017-06-25 16:00] VITALS: BP 98/72
--- NOTE | 2017-06-25 18:03 | NUR ---
End of shift note; Patient is AOX4. Patient is a 21 year old male admitted on 06/19/17 for Opiate dependence. Patient was placed on modified Subutex taper. Patient reported history of anxiety, depression, stomach ulcer. Patient is full code status, NKA. Patient's last COWS score 3 at 1600. Patient remained compliant with treatment plan and medication regime. All safety measures secured. Met all needs.
--- NOTE | 2017-06-25 18:34 | NUR ---
PRN medications; Patient is complaining of lower back pain rated 8/10 on adult pain scale. PRN Toradol 30mg IM given for pain. Will continue to monitor patient for effectiveness of medication.
[2017-06-25 20:00] VITALS: BP 140/76
--- NOTE | 2017-06-25 20:00 | NUR ---
START OF SHIFT NOTE RECEIVED REPORT FROM DAY SHIFT NURSE. PATIENT IS A 21 YEAR OLD MALE ADMITTED FOR OPIATE DEPENDENCE. PATIENT CONTINUE ON MODIFIED SUBUTEX TAPER. PATIENT REPORTS PMH OF ANXIETY, DEPRESSION AND STOMACH ULCER. PATIENT WAS GIVEN PRN TORADOL IM INJECTION. LAST COWS 3. RECEIVED PATIENT ALERT AND ORIENTED X 4. RESPIRATION EVEN AND UNLABORED. PATIENT C/O BACK PAIN 6/10, REPORTS ANXIETY, SWEATING, STUFFY NOSE AND ABDOMINAL CRAMPING . ON FALL PRECAUTION. SAFETY MEASURES IN PLACE. CALL LIGHT IN REACH. WILL CONTINUE TO MONITOR
[2017-06-25] MEDS: QUETIAPINE FUMARATE 100 MG TABLET PO SCH (20:36)
[2017-06-25] MEDS: DOCUSATE SODIUM 100 MG CAPSULE PO SCH (20:37)
--- NOTE | 2017-06-26 | NUR ---
COWS DEFERRED PATIENT SLEEPING. COWS DEFERRED. VS REFUSED. RESPIRATION EVEN AND UNLABORED. SAFETY MEASURES IN PLACE. CALL LIGHT IN REACH. WILL CONTINUE TO MONITOR.
--- NOTE | 2017-06-26 04:00 | NUR ---
COWS DEFERRED PATIENT SLEEPING. COWS DEFERRED. VS REFUSED. RESPIRATION EVEN AND UNLABORED. SAFETY MEASURES IN PLACE. CALL LIGHT IN REACH. WILL CONTINUE TO MONITOR.
[2017-06-26] MEDS: PANTOPRAZOLE SODIUM 40 MG TABLET.DR PO SCH (06:30)
--- NOTE | 2017-06-26 07:13 | NUR ---
END OF SHIFT NOTE PATIENT SLEPT 6 HOURS. FLUID INTAKE OF 596 ML. VOIDED X 1. NO BM. PATIENT COMPLIANT WITH MEDICATION AND TREATMENT PLAN. PATIENT CONTINUE ON PATIENT C/O BACK PAIN, SWEATING, STUFFY NOSE AND ABDOMINAL CRAMPING BEGINNING OF SHIFT. . PATIENT CONTINUE ON SUBUTEX TAPER TO MANAGE WITHDRAWAL SYMPTOMS, TOLERATED WELL AND NO ADVERSE REACTION. PATIENT DID NOT REQUIRE ANY PRN MEDICATION. LAST COWS 6. ON FALL PRECAUTION. SAFETY MEASURES IN PLACE. CALL LIGHT IN REACH. WILL CONTINUE TO MONITOR
[2017-06-26 08:00] VITALS: BP 106/65
--- NOTE | 2017-06-26 08:13 | NUR ---
Start of shift note; Received report from night nurse. Patient is a 21 year old male admitted on 06/19/17 for Opiate dependence. Patient was placed on modified Subutex taper. Patient reported history of anxiety, depression, stomach ulcer. Patient is full code status, NKA. Patient's last COWS score of 6 per endorsement. Patient slept for 6 hours. Patient is on fall and seizure precaution. All safety measures secured. Will continue to monitor patient.
[2017-06-26] MEDS: BUPRENORPHINE HCL 2 MG TAB.SUBL SL SCH ×2 (09:29→20:33)
[2017-06-26] MEDS: MULTIVITAMINS,THERAPEUTIC TABLET PO SCH (09:29)
[2017-06-26] MEDS: GABAPENTIN 300 MG CAPSULE PO SCH ×3 (09:29→20:32)
[2017-06-26] MEDS: BACLOFEN 20 MG TABLET PO SCH ×3 (09:29→20:32)
[2017-06-26] MEDS: DICYCLOMINE HCL 20 MG TABLET PO SCH ×3 (09:29→20:32)
[2017-06-26] MEDS: CLONIDINE HCL 0.1 MG TABLET PO SCH ×2 (09:30→14:14)
--- NOTE | 2017-06-26 10:33 | NUR ---
PRN medication; Patient is complaining of constipation. PRN Miralax given to patient, will continue to monitor patient.
--- NOTE | 2017-06-26 11:33 | NUR ---
Re-assessment; Patient is still complaining of constipation. Encouraged patient to increase fluid intake to facilitate proper digestion. Will continue to monitor patient.
[2017-06-26 12:00] VITALS: BP 132/66
[2017-06-26] MEDS ORDERED: MAGNESIUM CITRATE 296 ML BOTTLE PO PRN (12:00)
[2017-06-26] MEDS ORDERED: CLONIDINE HCL 0.2 MG TABLET PO PRN (12:00)
[2017-06-26 16:00] VITALS: BP 120/79
--- NOTE | 2017-06-26 19:08 | NUR ---
End of shift note; Patient is AOX4. Patient is a 21 year old male admitted on 06/19/17 for Opiate dependence. Patient was placed on modified Subutex taper. Patient reported history of anxiety, depression, stomach ulcer. Patient is full code status, NKA. Patient's last COWS score .4 at 1600. Patient remained compliant with treatment plan and medication regime. All safety measures secured. Met all needs.
--- NOTE | 2017-06-26 19:15 | NUR ---
START OF SHIFT Patient is a 21-year-old male admitted on 06/19/17 for heroin dependence and withdrawal. Patient has a past medical history of anxiety, depression, and stomach ulcers. Patient is FULL code, NKA, on a regular diet, requesting no oily foods. Upon assessment, patient is alert and oriented x4, respirations even and unlabored, skin intact. Patient complains of back pain, 6/10, and states that he has had the pain since earlier today. Patient is on fall precautions. Safety measures in place, bed locked in low position, side rails up x2, call light within reach. Will continue to monitor.
[2017-06-26 20:00] VITALS: BP 128/54
[2017-06-26] MEDS: DOCUSATE SODIUM 100 MG CAPSULE PO SCH (20:32)
[2017-06-26] MEDS: METHOCARBAMOL 750 MG TABLET PO PRN (20:32)
--- NOTE | 2017-06-26 20:32 | NUR ---
PRN ROBAXIN Patient complains of back pain 12/11, PRN Robaxin 750mg given PO. Safety measures in place. Will reassess in one hour.
[2017-06-26] MEDS: QUETIAPINE FUMARATE 100 MG TABLET PO SCH (20:33)
[2017-06-26] MEDS: CLONIDINE HCL 0.2 MG TABLET PO SCH (20:33)
--- NOTE | 2017-06-26 21:32 | NUR ---
PRN ROBAXIN REASSESSMENT Patient reports pain level for backache at 4/10; PRN Robaxin was somewhat effective. Safety measures in place, bed locked in low position, side rails up x2, call light within reach. Will continue monitor.
[2017-06-27] VITALS: BP 109/53
--- NOTE | 2017-06-27 | NUR ---
MIDNIGHT COWS DEFERRED Midnight COWS deferred due to patient asleep; to be assessed and scored while patient is awake, per protocol. Patient's respirations are even and unlabored, 16/min. Safety measures in place, bed locked in low position, side rails up x2, call light within reach. Will continue to monitor.
[2017-06-27 04:00] VITALS: BP 104/48
--- NOTE | 2017-06-27 04:00 | NUR ---
4AM COWS DEFERRED 4AM COWS deferred due to patient asleep; to be assessed and scored while patient is awake, per protocol. Patient's respirations are even and unlabored, 14/min. Safety measures in place, bed locked in low position, side rails up x2, call light within reach. Will continue to monitor.
[2017-06-27] MEDS: PANTOPRAZOLE SODIUM 40 MG TABLET.DR PO SCH (06:39)
--- NOTE | 2017-06-27 07:03 | NUR ---
END OF SHIFT Patient is a 21-year-old male admitted on 06/19/17 for heroin dependence and withdrawal. Patient has a past medical history of anxiety, depression, and stomach ulcers. Patient is FULL code, NKA, on a regular diet, requesting no oily foods. Patient slept for 6 hours, total intake of 1842 mL, void x1, stool x1. Last COWS score was 7. PRN Robaxin given at 2031, for back pain of 6/10. PRN was minimally effective, bringing pain down to 4/10 at time of reassessment. Patient is on fall precautions. Safety measures in place, bed locked in low position, side rails up x2, call light within reach. Will endorse to day shift.
[2017-06-27 08:00] VITALS: BP 120/86
[2017-06-27] MEDS: BACLOFEN 20 MG TABLET PO SCH ×3 (08:51→21:41)
[2017-06-27] MEDS: DICYCLOMINE HCL 20 MG TABLET PO SCH ×3 (08:51→21:41)
[2017-06-27] MEDS: CLONIDINE HCL 0.1 MG TABLET PO SCH ×2 (08:51→14:44)
[2017-06-27] MEDS: MULTIVITAMINS,THERAPEUTIC TABLET PO SCH (08:51)
[2017-06-27] MEDS: GABAPENTIN 300 MG CAPSULE PO SCH ×3 (08:51→21:41)
[2017-06-27] MEDS ORDERED: BUPRENORPHINE HCL 2 MG TAB.SUBL SL SCH (09:00)
[2017-06-27 12:00] VITALS: BP 123/68
[2017-06-27] MEDS: OSELTAMIVIR PHOSPHATE 75 MG CAPSULE PO SCH (12:53)
[2017-06-27] MEDS ORDERED: ASPIRIN/ACETAMINOPHEN/CAFFEINE TABLET PO PRN (13:00)
[2017-06-27] MEDS ORDERED: MAGNESIUM CITRATE 296 ML BOTTLE PO ONE (13:00)
--- NOTE | 2017-06-27 13:48 | NUR ---
MD order; MD ordered prophylactic Tamiflu to prevent flu. Patient is afebrile,no s/s of flu at this time. Will continue to monitor patient .
[2017-06-27] MEDS ORDERED: IBUP-1955 PO (14:11)
[2017-06-27] MEDS ORDERED: HYDR-3895 PO (14:11)
[2017-06-27] MEDS ORDERED: PANT40TA2 PO (14:11)
[2017-06-27] MEDS ORDERED: METH-406 PO (14:11)
[2017-06-27] MEDS ORDERED: CLON0.1T14 PO (14:11)
[2017-06-27] MEDS ORDERED: DICY20TA28 PO (14:11)
[2017-06-27] MEDS ORDERED: CLON0.2T12 PO (14:11)
[2017-06-27] MEDS ORDERED: GABA-534 PO (14:11)
[2017-06-27] MEDS ORDERED: QUET100T PO (14:11)
[2017-06-27] MEDS ORDERED: DIPH50CA37 PO (14:11)
[2017-06-27] MEDS ORDERED: DOCU100C36 PO (14:11)
[2017-06-27 16:00] VITALS: BP 115/62
--- NOTE | 2017-06-27 18:37 | NUR ---
End of shift note; Patient is AOX4. Patient is a 21 year old male admitted on 06/19/17 for Opiate dependence. Patient was placed on modified Subutex taper, no adverse reactions noted. Patient reported history of anxiety, depression, stomach ulcer. Patient is full code status, NKA. Patient remained compliant with treatment plan and medication regime. Patient is medically cleared for discharge tomorrow. All safety measures secured. Met all needs.
--- NOTE | 2017-06-27 19:10 | NUR ---
START OF SHIFT Patient is a 21-year-old male admitted on 06/19/17 for heroin dependence and withdrawal. Patient has a past medical history of anxiety, depression, and stomach ulcers. Patient is FULL code, NKA to food or drugs, on a regular diet, requesting no oily foods. Patient has completed Subutex taper, tolerated well. Upon assessment, patient is alert and oriented x4, respirations even and unlabored, skin intact. Patient complains of back pain, 6/10, and states that the pain comes and goes. Patient is on fall precautions. Safety measures in place, bed locked in low position, side rails up x2, call light within reach. Will continue to monitor.
[2017-06-27 20:00] VITALS: BP 146/75
[2017-06-27] MEDS: METHOCARBAMOL 750 MG TABLET PO PRN (21:40)
--- NOTE | 2017-06-27 21:40 | NUR ---
PRN ROBAXIN Patient reports lower left back pain of 6/10. PRN Robaxin given PO. Safety measures in place, call light within reach. Will reassess in one hour.
[2017-06-27] MEDS: CLONIDINE HCL 0.2 MG TABLET PO SCH (21:41)
[2017-06-27] MEDS: DOCUSATE SODIUM 100 MG CAPSULE PO SCH (21:41)
[2017-06-27] MEDS: QUETIAPINE FUMARATE 100 MG TABLET PO SCH (21:41)
--- NOTE | 2017-06-27 22:40 | NUR ---
PRN ROBAXIN REASSESSMENT Patient reports lower left back pain of 4/10. PRN Robaxin has been effective in bringing patient's pain to a tolerable level. Safety measures in place, bed locked in low position, side rails up x2, call light within reach. Will continue to monitor.
[2017-06-27] MEDS: IBUPROFEN 600 MG TABLET PO PRN (23:06)
--- NOTE | 2017-06-27 23:06 | NUR ---
PRN MOTRIN Patient complains of headache 5/10. PRN Motrin given PO. Safety measures in place, call light within reach. Will reassess in one hour.
--- NOTE | 2017-06-28 | NUR ---
MIDNIGHT VITALS REFUSED, COWS DEFERRED Patient refused midnight vital signs, COWS deferred due to patient sleeping; to be assessed and scored while patient is awake per protocol. Respirations are even and unlabored, 16/min. Safety measures in place, call light within reach. Will continue to monitor.
--- NOTE | 2017-06-28 00:06 | NUR ---
PRN MOTRIN REASSESSMENT Patient is resting in bed with eyes closed. When asked about pain level, patient reports improvement in headache. PRN Motrin effective. Safety measures in place, bed locked in low position, side rails up x2, call light within reach. Will continue to monitor.
[2017-06-28 04:00] VITALS: BP 104/50
--- NOTE | 2017-06-28 04:00 | NUR ---
4AM COWS DEFERRED COWS deferred due to patient sleeping; to be assessed and scored while patient is awake per protocol. Respirations are even and unlabored, 16/min. Safety measures in place, call light within reach. Will continue to monitor.
[2017-06-28] MEDS: PANTOPRAZOLE SODIUM 40 MG TABLET.DR PO SCH (06:28)
--- NOTE | 2017-06-28 07:05 | NUR ---
END OF SHIFT Patient is a 21-year-old male admitted on 06/19/17 for heroin dependence and withdrawal. Patient has a past medical history of anxiety, depression, and stomach ulcers. Patient is FULL code, NKA to food or drugs, on a regular diet, requesting no oily foods. Patient has completed Subutex taper, tolerated well. Patient is scheduled for discharge today. Patient slept for 6 hours, total intake of 1,592 mL, void x5, stool x0. Patient received PRN Robaxin and Motrin; both were effective. Patients last COWS score was 6. Patient is on fall precautions. Safety measures in place, bed locked in low position, side rails up x2, call light within reach. Will endorse to day shift.
[2017-06-28 08:00] VITALS: BP 107/63
--- NOTE | 2017-06-28 08:02 | NUR ---
Start of shift note; Received report from night nurse. Patient is a 21 year old male admitted on 06/19/17 for Opiate dependence. Patient is AOX4. Patient had an uneventful night. Patient is medically cleared for discharge. Patient is on fall precaution. All safety measures secured. Will continue to monitor patient.
[2017-06-28 08:36] VITALS: BP 107/63
[2017-06-28] MEDS: CLONIDINE HCL 0.1 MG TABLET PO SCH (08:36)
[2017-06-28] MEDS: MULTIVITAMINS,THERAPEUTIC TABLET PO SCH (08:36)
[2017-06-28] MEDS: BACLOFEN 20 MG TABLET PO SCH (08:36)
[2017-06-28] MEDS: GABAPENTIN 300 MG CAPSULE PO SCH (08:36)
[2017-06-28] MEDS: DICYCLOMINE HCL 20 MG TABLET PO SCH (08:36)
[2017-06-28] MEDS: OSELTAMIVIR PHOSPHATE 75 MG CAPSULE PO SCH (08:38)
--- NOTE | 2017-06-28 09:45 | NUR ---
Discharge note; Patient is AOX4. Patient completed treatment without any adverse reactions. All valuables, belongings and prescriptions given to patient. Patient is medically cleared for discharge today per MD. Patient was escorted out of the facility on 06/27/17 ate exactly 0945. Patient is afebrile and in a stable condition. Met all patient's needs.
== END 2017-06-28 09:45 | disposition other institution (70) | DRG 895 ==
LOC: SRC 20:32
PROVIDERS: ADMIT Internal Medicine; ATTEND Internal Medicine
PROC: HZ2ZZZZ Detoxification Services for Substance Abuse Treatment (ICD-10-PCS; principal; 2017-06-19)
PROC: HZ41ZZZ Group Counseling for Substance Abuse Treatment, Behavioral (ICD-10-PCS; 2017-06-25)
DX: F11.23 Opioid dependence with withdrawal (principal); F17.210 Nicotine dependence, cigarettes, uncomplicated; G47.00 Insomnia, unspecified; K27.7 Chronic peptic ulcer, site unspecified, without hemorrhage or perforation; F41.9 Anxiety disorder, unspecified; K59.03 Drug induced constipation; R73.9 Hyperglycemia, unspecified
CPT/HCPCS: 36415; 70030-TC; 80307; 80361; 83690; 83735; 84443; 85025; 86592; 86705; 86803; 87340; 87806; A4663; G0480; J1885; Q0163